=== PATIENT | female | born 1945 | race Caucasian/White ===

== ENCOUNTER → 2018-05-13 | Day surgery (SDC) | payer MEDICARE ==
[2018-05-09 15:05] LABS: BASOPHILS % 0.7 % (0.0-1.0); EOSINOPHILS # (AUTO) 0.2 (0.0-0.4); EOSINOPHILS % 4.3 % (0.0-6.0); HEMATOCRIT 32.6 % (34.2-44.1); HEMOGLOBIN 10.5 g/dL (12.0-16.0); LYMPHOCYTES # (AUTO) 1.2 (1.0-3.2); LYMPHOCYTES % 22.2 % (18.0-39.1); MEAN CORPUSCULAR HGB CONC 32.2 g/dL (31-35); MEAN CORPUSCULAR VOLUME 90.1 fL (81-99); MONOCYTES # (AUTO) 0.4 (0.2-0.8); MONOCYTES % 7.2 % (4.4-11.3); NEUTROPHILS # (AUTO) 3.7 (2.1-6.9); NEUTROPHILS % 65.4 % (38.7-80.0); PLATELET COUNT 160 x10e3/uL (140-360); RED BLOOD COUNT 3.62 x10e6/uL (3.6-5.1); RED CELL DISTRIBUTION WIDTH 14.8 % (11.7-14.4)
[2018-05-09 15:34] LABS: ANION GAP 14.8 mmol/L (8-16); CREATININE, SERUM 1.43 mg/dL (0.57-1.11); POTASSIUM 3.8 mmol/L (3.5-5.1)
--- NOTE | 2018-05-09 16:09 | Diagnostic Imaging Report ---
EXAMINATION: CHEST 2 VIEWS INDICATION: Pre-admit. COMPARISON: None FINDINGS: TUBES and LINES: None. LUNGS: Lungs are well inflated. Lungs are clear. There is no evidence of pneumonia or pulmonary edema. PLEURA: No pleural effusion or pneumothorax. HEART AND MEDIASTINUM: The cardiomediastinal silhouette is unremarkable. BONES AND SOFT TISSUES: No acute osseous abnormality. Postsurgical changes involving the left lower chest wall. UPPER ABDOMEN: No free air under the diaphragm. There are postsurgical changes involving the upper abdomen. IMPRESSION: No acute radiographic abnormality. Signed by: Dr. Sergo Devine MD on 05/09/2018 4:05 PM
[~2018-05-13] MED LIST: ACETAMINOPHEN650 M1; ALLOPURINOL300 MG PO; AMLODIPINE BESY10 MG PO; ASPIRIN81 MG; BACLOFEN10 MG PO; BUPROPION HCL100 MG PO; CEFAZOLIN SOD 1 GM/NS 50ML 50 ML IV ONE; DEXAMETHASONE SOD PHOS INJ 4 MG/ML VIAL ONE; FENTANYL CITRATE/PF 100MCG/2 ML INJ ONE; FOCUS FACTOR; LAMOTRIGINE200 MG PO; LASIX20 MG PO; LIDOCAINE HCL 2% LOCAL INJ 5 ML SDV VIAL INJ ONE; METOPROLOL TART50 MG PO; MIDAZOLAM HCL 2 MG/2 ML VIAL ONE; NORCO 7.5-3251 EACH PO; OMEGA 3 FISH O1 EACH; OMEPRAZOLE40 MG PO; ONDANSETRON HCL INJ 2MG/ML 2ML 2 MG/ML VIAL ONE; POTASSIUM CHLO500 G1 PO; PRAVASTATIN SOD40 MG PO; PROPOFOL IV EMULSION 10 MG/ML 20 ML VIAL ONE; SEVOFLURANE INHAL SOLN 250 ML PEN BTL ONE; SUPER B COMPLE1 EACH; SYNTHROID100 MCG PO; TRAMADOL HCL100 MG; TUMERIC; VENLAFAXINE H37.5 M2 PO; VITAMIN D35000 UNIT
--- OUTSIDE RECORDS SUMMARY | 2018-05-13 05:11 | XMS REPORT ---
Author Author [facility] Address Unknown Phone Unavailable Care Team Providers Care Hooker Operator Name Role Phone MAT CHRISTENSEN Unavailable Unavailable Problems This patient has no known problems. Allergies, Adverse Reactions, Alerts This patient has no known allergies or adverse reactions. Medications This patient has no known medications. Results Test Description Test Time Test Comments Text Results Atomic Results Result Comments CHEST 2 VIEWS 2018-05-09 16:02:00 [place] [address] Patient Name: JACK DICKENS MR #: [id number] : 1945 Age/Sex: 72/F Req #: [id number] Adm Physician: Ordered by: MAT CHRISTENSEN MD Report #: [id number] Location: OR Room/Bed: Procedure: [id number] DX/CHEST 2 VIEWS Exam Date: 05/09/18 Exam Time: 1530 REPORT STATUS: Signed EXAMINATION: CHEST 2 VIEWS INDICATION: Pre-admit. COMPARISON: None FINDINGS: TUBES and LINES: None. LUNGS: Lungs are well inflated. Lungs are clear. There is no evidence of pneumonia or pulmonary edema. PLEURA: No pleural effusion or pneumothorax. HEART AND MEDIASTINUM: The cardiomediastinal silhouette is unremarkable. BONES AND SOFT TISSUES: No acute osseous abnormality. Postsurgical changes i nvolving the left lower chest wall. UPPER ABDOMEN: No free air under the diaphragm. There are postsurgical changes involving the upper abdomen. IMPRESSION: No acute radiographic abnormality. Signed by: Dr. Moon Soria MD on 05/09/2018 4:05 PM Dictated By: MOON SORIA MD [id number] Transcribed By: BRIGHT on 05/09/18 1601 COPY TO: MAT CHRISTENSEN MD
--- NOTE | 2018-05-13 08:00 | Operative Report ---
DATE OF PROCEDURE: May 13, 2018 MACHINIST BRAKE: Magdi Rutherford PA-C The patient was brought to the operating room for induction of anesthesia. Throughout this case, my PA's assistance was necessary for retraction of soft tissue and positioning of the extremity. This allows for efficient and technically successful execution of the operation and is considered medically necessary. PREOPERATIVE DIAGNOSIS: Bilateral carpal tunnel syndrome. POSTOPERATIVE DIAGNOSIS: Bilateral carpal tunnel syndrome. PROCEDURE: Bilateral endoscopic carpal tunnel release. INDICATIONS: The patient is a 72-year-old lady who has clinic signs and symptoms consistent with bilateral carpal tunnel syndrome. She has failed conservative management and would like to proceed with definitive intervention. The risks and benefits of an endoscopic versus open carpal tunnel release have been discussed. She states she understands and wishes to proceed. DESCRIPTION OF PROCEDURE: The patient was brought to the operating room and placed under general anesthetic. Both upper extremities were prepped and draped in a sterile manner. A preoperative time out was performed. Initial attention was directed towards the left upper extremity. The extremity was exsanguinated and a proximal tourniquet was inflated to 250 mmHg. A transverse incision was made over the flexion crease of the left wrist. The palmaris longus was retracted to the radial side of the wound. The flexor retinaculum was elevated and incised with a pair of tenotomy scissors. An elevator was placed to tease the tenosynovium off of the undersurface of the transverse carpal ligament. Dilators were placed and the hook of the hamate was palpated. The Micro-Aire endoscope was placed into the carpal tunnel. The undersurface of the ligament was cleanly visualized without evidence of soft tissue interposition. The knife was deployed and the ligament was cut from distal to proximal. The proximal retinaculum was incised under direct visualization using a pair Metzenbaum scissors. The incision was closed with 2 interrupted nylon stitches. A sterile bandage was applied and the tourniquet was deflated. The same procedure was then performed on the right side. The patient was extubated and transported to the recovery room in stable condition. There was no blood loss. All needle and sponge counts were correct. Job#: [id number] ND
[2018-05-13 09:00] VITALS: BP 149/90
== END | disposition home or self-care (01) ==
LOC: OR 05:09
PROVIDERS: ATTEND Specialist
DX: G56.03 Carpal tunnel syndrome, bilateral upper limbs (principal); I12.9 Hypertensive chronic kidney disease with stage 1 through stage 4 chronic kidney disease, or unspecified chronic kidney disease; N18.9 Chronic kidney disease, unspecified; M06.9 Rheumatoid arthritis, unspecified; R53.1 Weakness; M54.2 Cervicalgia; E03.9 Hypothyroidism, unspecified; K21.9 Gastro-esophageal reflux disease without esophagitis; K44.9 Diaphragmatic hernia without obstruction or gangrene; R35.0 Frequency of micturition; D64.9 Anemia, unspecified; E78.5 Hyperlipidemia, unspecified; R01.1 Cardiac murmur, unspecified; R00.1 Bradycardia, unspecified; F32.9 Major depressive disorder, single episode, unspecified; Z01.810 Encounter for preprocedural cardiovascular examination; Z01.812 Encounter for preprocedural laboratory examination; Z01.818 Encounter for other preprocedural examination; Z79.82 Long term (current) use of aspirin; Z68.37 Body mass index [BMI] 37.0-37.9, adult; Z87.891 Personal history of nicotine dependence
CPT/HCPCS: 29848; 36415; 71046; 80048; 85025; 93005; J0690; J1100; J2001; J2250; J2405; J2704

== ENCOUNTER 2018-09-20 13:28 | Inpatient (IN) | payer MEDICARE ==
[~2018-09-20] VITALS: Ht 162.6 cm; Wt 133.9 kg
[~2018-09-20 13:28] MED LIST changes: -ACETAMINOPHEN650 M1; +ACETAMINOPHEN650 M1 PO; -ASPIRIN81 MG; +ASPIRIN81 MG PO; -CEFAZOLIN SOD 1 GM/NS 50ML 50 ML IV ONE; -DEXAMETHASONE SOD PHOS INJ 4 MG/ML VIAL ONE; -FENTANYL CITRATE/PF 100MCG/2 ML INJ ONE; -FOCUS FACTOR; +FOCUS FACTOR PO; -LIDOCAINE HCL 2% LOCAL INJ 5 ML SDV VIAL INJ ONE; -MIDAZOLAM HCL 2 MG/2 ML VIAL ONE; -OMEGA 3 FISH O1 EACH; +OMEGA 3 FISH O1 EACH PO; -ONDANSETRON HCL INJ 2MG/ML 2ML 2 MG/ML VIAL ONE; -PROPOFOL IV EMULSION 10 MG/ML 20 ML VIAL ONE; -SEVOFLURANE INHAL SOLN 250 ML PEN BTL ONE; -SUPER B COMPLE1 EACH; +SUPER B COMPLE1 EACH PO; -TRAMADOL HCL100 MG; +TRAMADOL HCL100 MG PO; -TUMERIC; +TUMERIC PO; -VITAMIN D35000 UNIT; +VITAMIN D35000 UNIT PO
[2018-09-20] MEDS ORDERED: ONDANSETRON HCL INJ 2MG/ML 2ML 2 MG/ML VIAL IV NR (14:16)
[2018-09-20] MEDS ORDERED: SODIUM CHLORIDE 0.9% 1000ML 1,000 ML IV STA (14:16)
[2018-09-20] MEDS ORDERED: MORPHINE SULFATE INJ 4 MG/ML INJ 1ML IV NR (14:30)
[2018-09-20] MEDS ORDERED: ACETAMINOPHEN 325 MG TAB PO NR (14:30)
[2018-09-20 15:11] LABS: BASOPHILS # (AUTO) 0.1 (0.0-0.1); BASOPHILS % 0.3 % (0.0-1.0); EOSINOPHILS # (AUTO) 0.3 (0.0-0.4); HEMATOCRIT 37.1 % (34.2-44.1); HEMOGLOBIN 11.9 g/dL (12.0-16.0); LYMPHOCYTES # (AUTO) 1.3 (1.0-3.2); LYMPHOCYTES % 4.8 % (18.0-39.1); MEAN CORPUSCULAR HEMOGLOBIN 28.5 pg (28-32); MEAN CORPUSCULAR HGB CONC 32.1 g/dL (31-35); MONOCYTES % 7.2 % (4.4-11.3); NEUTROPHILS # (AUTO) 23.9 (2.1-6.9); NEUTROPHILS % 85.7 % (38.7-80.0); PLATELET COUNT 246 x10e3/uL (140-360); RED BLOOD COUNT 4.17 x10e6/uL (3.6-5.1); RED CELL DISTRIBUTION WIDTH 15.5 % (11.7-14.4)
[2018-09-20 15:21] LABS: INR 1.13
[2018-09-20 15:22] LABS: PARTIAL THROMBOPLASTIN TIME 35.4 seconds (23.8-35.5)
[2018-09-20 15:28] LABS: ALBUMIN 2.8 g/dL (3.5-5.0); ALBUMIN/GLOBULIN RATIO 0.8 (0.8-2.0); ANION GAP 12.8 mmol/L (8-16); CALCIUM 9.3 mg/dL (8.4-10.2); CREATININE, SERUM 1.16 mg/dL (0.57-1.11); MAGNESIUM 2.1 MG/DL (1.3-2.1); POTASSIUM 3.8 mmol/L (3.5-5.1)
[2018-09-20 15:36] LABS: CREATINE KINASE MB 1.8 ng/mL (0-5.0)
--- NOTE | 2018-09-20 15:36 | Diagnostic Imaging Report ---
EXAMINATION: CHEST SINGLE (PORTABLE) INDICATION: Flank pain. COMPARISON: Chest radiograph 05/09/2018. FINDINGS: TUBES and LINES: None. LUNGS/PLEURA: There is near complete opacification of the left hemithorax. There is a small amount of residual aeration in the left upper lung. The right lung is clear. HEART AND MEDIASTINUM: Silhouetting of the left heart border. BONES AND SOFT TISSUES: No acute osseous abnormality. Partially seen cervical spine fixation hardware. UPPER ABDOMEN: No free air under the diaphragm. Surgical clips project over the right upper abdomen. IMPRESSION: Near complete opacification of the left hemithorax, which may represent a combination of large pleural effusion and atelectasis. Underlying pneumonia is possible. Suggest chest CT for further evaluation. Signed by: Dr. Sergo Devine MD on 09/20/2018 3:33 PM
[2018-09-20 16:30] LABS: BILIRUBIN,URINE SMALL (NEGATIVE); CLARITY,URINE SL CLOUDY (CLEAR); KETONES,URINE NEGATIVE (NEGATIVE); LEUKOCYTE ESTERASE ,URINE TRACE (NEGATIVE); NITRITE,URINE NEGATIVE (NEGATIVE); PROTEIN,URINE DIPSTICK 1+ (NEGATIVE); URINE UROBILINOGEN 0.2 mg/dL (0.2 - 1)
[2018-09-20 16:31] LABS: COLOR,URINE STRAW (YELLOW)
--- NOTE | 2018-09-20 16:32 | Diagnostic Imaging Report ---
EXAM: CT Abdomen and Pelvis WITHOUT contrast INDICATION: Abdominal and back pain, history of renal stones. COMPARISON: Chest radiograph 09/20/2018. TECHNIQUE: Abdomen and pelvis were scanned utilizing a multidetector helical scanner from the lung base to the pubic symphysis without administration of IV contrast. Absence of intravenous contrast decreases sensitivity for detection of focal lesions and vascular pathology. Coronal and sagittal reformations were obtained. Renal stone protocol was performed. IV CONTRAST: None. ORAL CONTRAST: Water RADIATION DOSE: Total DLP: 753 mGy*cm Dose modulation, iterative reconstruction, and/or weight based adjustment of the mA/kV was utilized to reduce the radiation dose to as low as reasonably achievable. COMPLICATIONS: None FINDINGS: LINES and TUBES: None. LOWER THORAX: There is patchy and linear opacity in the right lower lobe. Partially seen left-sided pleural effusion with left lower lobe consolidation. There is a small amount of fluid within the left lower mediastinal fat. Trace pericardial effusion. HEPATOBILIARY: No evidence of focal hepatic lesions. No biliary ductal dilation. GALLBLADDER: Status post cholecystectomy. SPLEEN: No splenomegaly. PANCREAS: No evidence of focal masses or ductal dilatation. ADRENALS: No adrenal nodules KIDNEYS/URETERS: No hydronephrosis. No evidence of solid mass. No stones. There is a 3.8 cm simple cyst in the left mid pole kidney. Additional left lower pole subcentimeter renal hypodensity is too small to characterize, but likely represents a cyst. GI TRACT: No abnormal distention, wall thickening, or evidence of bowel obstruction. Status post gastric sleeve. Appendix is normal. PELVIC ORGANS/BLADDER: The bladder is partially decompressed. LYMPH NODES: No lymphadenopathy. VESSELS: There is moderate atherosclerotic disease in the aorta and major arterial branches. PERITONEUM / RETROPERITONEUM: No free air or fluid. BONES: Extensive degenerative changes of the lumbar spine. No acute osseous abnormality. SOFT TISSUES: There has been prior right anterior abdominal hernia repair. There is subcutaneous edema in the right lower back tissues. IMPRESSION: No evidence of renal stone. Partially seen left-sided pleural effusion and consolidative opacities in the left greater than right lower lobe, which may represent pneumonia or atelectasis. Recommend chest CT for further evaluation. If renal function is satisfactory, IV contrast would be helpful. Signed by: Dr. Sergo Devine MD on 09/20/2018 4:29 PM
[2018-09-20 16:44] LABS: AMORPHOUS SEDIMENT,URINE MODERATE (FEW); BACTERIA,URINE MANY /HPF; EPITHELIAL CELLS,URINE FEW /LPF; WBC,URINE (MAN) 0-5 /HPF (0-5)
[2018-09-20] MEDS: AZITHROMYCIN 500MG/NS 250 ML 250 ML IV SCH (17:11)
[2018-09-20] MEDS: PIPER-TAZ 3.375 GM 50 ML IV SCH (18:28)
[2018-09-20] MEDS ORDERED: ALBUTEROL SULF 0.083% NEB SOLN 3 ML NEB NEB PRN (18:45)
[2018-09-20] MEDS ORDERED: SODIUM CHLORIDE 0.9% 1000ML 1,000 ML IV ONE (18:45)
[2018-09-20] MEDS ORDERED: MORPHINE SULFATE 2 MG/ML SYR 1ML IV PRN (18:45)
--- NOTE | 2018-09-20 18:47 | Diagnostic Imaging Report ---
CT CHEST WITHOUT CONTRAST HISTORY: ? PNEUMONIA, abnormal x-ray, pain COMPARISON: Chest radiograph September 20, 2017. TECHNIQUE: CT scan of the chest WITHOUT intravenous contrast, using standard protocol. The chest was scanned utilizing a multidetector helical scanner from the apex to the level of the adrenal glands. Coronal and sagittal reformats are provided. IV CONTRAST: None, which limits evaluation of the vascular structures, mediastinum and soft tissues. RADIATION DOSE: Total DLP: 514.75 mGy*cm Dose modulation, iterative reconstruction, and/or weight based adjustment of the mA/kV was utilized to reduce the radiation dose to as low as reasonably achievable. COMPLICATIONS: None FINDINGS: Lines/tubes: None. Lungs and Airways: Right: * Mild lower lobe greater than upper lobe atelectasis versus scarring. Left: * Near complete collapse of the left lung. * Underlying pathology may be obscured. Pleura: Large low-density left effusion with components of loculation. Trace right effusion. Heart and mediastinum: The thyroid gland is normal. Trace pericardial fluid. Fluid within the esophagus. Abdomen: Limited nonenhanced views of the upper abdomen. Metallic clips in the right upper quadrant of the abdomen are compatible with prior cholecystectomy. Lymph nodes: No pathologically enlarged lymph node. Vessels: Mild enlargement of the pulmonary arteries. Scattered atherosclerotic vascular calcifications, including the coronary arteries. Low-density blood flow. Bones: No acute osseous lesion identified. Multilevel flowing nonmarginal syndesmophytes, compatible with DISH (Diffuse idiopathic skeletal hyperostosis). Soft tissues: Otherwise, unremarkable. IMPRESSION: 1. Large left pleural effusion with components of loculation, results in near complete collapse of the left lung. Recommend short term follow up routine PA and lateral chest radiographs, in 6-8 weeks, to evaluate for resolution. 2. Trace right pleural effusion with adjacent atelectasis. 3. Mild enlargement of pulmonary arteries, suggestive of increased pulmonary arterial pressures. 4. Probable gastroesophageal reflux. 5. Anemia. Signed by: Dr. Dirk El D.O., M.M.M. on 09/20/2018 6:43 PM
--- NOTE | 2018-09-20 18:59 | NUR ---
Per Dr. Dela Cruz, patient may have thoracentesis done 09/21/18 in the morning.
[2018-09-20] MEDS: ONDANSETRON HCL INJ 2MG/ML 2ML 2 MG/ML VIAL IV PRN (19:10)
[2018-09-20 21:12] VITALS: BP_SYST 108; BP_SYST 123; BP_DIAS 67; BP_DIAS 75
[2018-09-20 21:27] VITALS: BP 123/67
--- NOTE | 2018-09-20 21:48 | NUR ---
Consent signed for thoracentesis
[2018-09-21] VITALS (8 sets, daily range): BP systolic 124–144; BP diastolic 61–84
[2018-09-21] MEDS: PIPER-TAZ 3.375 GM 50 ML IV SCH ×4 (00:08→17:16)
[2018-09-21 00:35] LABS: CREATINE KINASE MB 2.3 ng/mL (0-5.0)
[2018-09-21 05:35] LABS: BASOPHILS # (AUTO) 0.1 (0.0-0.1); BASOPHILS % 0.2 % (0.0-1.0); EOSINOPHILS # (AUTO) 0.4 (0.0-0.4); EOSINOPHILS % 1.6 % (0.0-6.0); HEMOGLOBIN 10.5 g/dL (12.0-16.0); LYMPHOCYTES # (AUTO) 0.8 (1.0-3.2); LYMPHOCYTES % 3.6 % (18.0-39.1); MEAN CORPUSCULAR HEMOGLOBIN 28.2 pg (28-32); MEAN CORPUSCULAR HGB CONC 30.9 g/dL (31-35); MEAN CORPUSCULAR VOLUME 91.4 fL (81-99); MONOCYTES # (AUTO) 1.3 (0.2-0.8); MONOCYTES % 5.9 % (4.4-11.3); NEUTROPHILS # (AUTO) 19.4 (2.1-6.9); NEUTROPHILS % 87.9 % (38.7-80.0); PLATELET COUNT 191 x10e3/uL (140-360); RED BLOOD COUNT 3.72 x10e6/uL (3.6-5.1); RED CELL DISTRIBUTION WIDTH 15.2 % (11.7-14.4)
--- NOTE | 2018-09-21 06:03 | Diagnostic Imaging Report ---
EXAMINATION: CHEST SINGLE (PORTABLE) INDICATION: Pneumonia. COMPARISON: Chest radiograph 09/20/2018 at 1452 hours. FINDINGS: TUBES and LINES: None. LUNGS/PLEURA: There is now complete opacification of the left hemithorax including the apex which was previously aerated. HEART AND MEDIASTINUM: Obscured. BONES AND SOFT TISSUES: No acute osseous abnormality. Partially seen cervical spine fixation hardware. UPPER ABDOMEN: No free air under the diaphragm. Surgical clips project over the right upper abdomen. IMPRESSION: Interval increased density in the left hemithorax including the apex. Signed by: Dr. Jaylen Jensen M.D. on 09/21/2018 6:00 AM
[2018-09-21 06:14] LABS: ALBUMIN 2.5 g/dL (3.5-5.0); ALBUMIN/GLOBULIN RATIO 0.7 (0.8-2.0); ANION GAP 13.1 mmol/L (8-16); CALCIUM 8.9 mg/dL (8.4-10.2); CREATININE, SERUM 1.1 mg/dL (0.57-1.11); POTASSIUM 4.1 mmol/L (3.5-5.1)
[2018-09-21 06:39] LABS: CREATINE KINASE MB 1.3 ng/mL (0-5.0)
--- NOTE | 2018-09-21 07:05 | NUR ---
RCD PT AT BED PT IS ALERT AND ORIENTED AND RESTING ON BED NO SIGNS PF ANY DISTRESS NOTED IV PATENT BED LOW AND LOCKED CALL LIGHT IN REACH
--- NOTE | 2018-09-21 10:55 | NUR ---
PT WENT TO PROCEDURE IN SAFE CONDITION
--- NOTE | 2018-09-21 12:00 | NUR ---
PT BACK AFTER PROCEDURE PT IS ALERT AND ORIENTED VITALS CHECKED PT RESTING ON BED NO SIGNS OF ANY BLEEDING OR LEAKING ON THE LEFT MIDDLE OF BACK BED LOW AND LOCKED CALL LIGHT IN REACH DRAINED 200 ML OF YELLOW FLUID
--- NOTE | 2018-09-21 12:20 | NUR ---
Patient returned from thoracentesis and no s/s of distress noted. Removed 200ml of yellow thin fluid. Sent to lab. Waiting on orders per MD. Patient sitting on edge of bed and eating lunch
--- NOTE | 2018-09-21 12:35 | Diagnostic Imaging Report ---
EXAM: CT Chest drainage without contrast 09/21/2018 12:00 AM INDICATION: Multiloculated pleural effusion COMPARISON: CT scan performed one day prior TECHNIQUE: Chest was scanned utilizing a multidetector helical scanner from the lung apex through the level of the adrenal glands without administration of IV contrast. Coronal and sagittal reformations were obtained. IV CONTRAST: None RADIATION DOSE: Total DLP: 1418.22 mGy*cm Estimated effective dose: (DLP x 0.014 x size factor) mSv COMPLICATIONS: None CT scanning was performed with the patient in the prone oblique position left side up. Appropriate level for placement of a centesis catheter was determined. Local anesthesia with 1% Xylocaine after full sterile preparation was accomplished. An 8 Mongolian TPK centesis catheter was placed into the pleural space. Only 150 cc was able to be aspirated due to the loculated nature of the pleural effusion. Specimen was sent to the laboratory for culture and sensitivity and additional studies as ordered by the attending physician. Catheter was removed and full lung scanning was performed. Patient tolerated the procedure well. IMPRESSION: 1. CT-guided thoracentesis as described above without evidence of postprocedure pneumothorax. 2. Due to the loculated nature of the effusion surgical consultation is recommended for placement of a large-bore chest tube. Signed by: Dr. Roland Morales DO on 09/21/2018 12:32 PM
--- NOTE | 2018-09-21 13:45 | Diagnostic Imaging Report ---
EXAMINATION: CHEST XRAY POST PROCEDURE COMPARISON: CT chest drainage 1133 hours, chest x-ray 0511 hours INDICATION: ^increased SOB post thoracentesis DISCUSSION: Frontal view of the chest obtained at 1326 hours. HEART AND MEDIASTINUM: The left heart border is obscured due to a loculated left pleural effusion and associated atelectasis. The right heart border is similar in morphology. No mediastinal shift. LINES: None visualized LUNGS: The right lung is well-inflated. The left hemithorax remains almost completely opacified. PLEURA: No evidence of pneumothorax. BONES AND SOFT TISSUES: No focal osseous lesion. The soft tissues are normal. IMPRESSION: No evidence of pneumothorax after CT-guided left thoracentesis. Large loculated left pleural effusion remains. Signed by: Dr. Mark Gordon MD on 09/21/2018 1:42 PM
[2018-09-21 13:49] LABS: CREATINE KINASE MB 1.2 ng/mL (0-5.0)
[2018-09-21] MEDS: AMLODIPINE BESYLATE 10 MG TAB PO SCH (14:30)
[2018-09-21] MEDS: METOPROLOL TARTRATE 50 MG TAB PO SCH (14:30)
[2018-09-21] MEDS ORDERED: PANTOPRAZOLE SOD 40 MG TABEC PO SCH (14:40)
[2018-09-21] MEDS: ONDANSETRON HCL INJ 2MG/ML 2ML 2 MG/ML VIAL IV PRN ×2 (15:28→15:34)
[2018-09-21] MEDS ORDERED: CALCIUM CARBONATE 500 MG CHEWABLE TABS PO PRN (16:00)
--- NOTE | 2018-09-21 16:01 | NUR ---
Nutrition Screen Note RD Recommendation for Physician: -Continue current diet as ordered Plan of Care: RD following, monitoring for tolerance and adequacy Nutrition reason for involvement: Nutrition Risk Trigger - MST Primary Diagnose(s): pleural effusion, PNA PMH: no H&P in chart Ht: 64in Wt: 212.38lb BMI: 36.5kg/m2 IBW: 120lb RD Assessment: (09/21) Chart reviewed. Labs and meds reviewed. 73yo F, who was admitted for pleural effusion. CT-guided left thoracentesis was done today. Visited pt in the room. Pt reported fair appetite with 100% recorded meal intake. Pt also reported 12lbs weight gain since started on Prednisone. Pt denied any nausea or vomiting. LBM 09/20. Pt No complains of chewing or swallowing difficulty. Will continue to monitor and follow. Current Diet: cardiac diet Malnutrition Evaluation (09/21/2018) The patient does not meet criteria for a specified degree of malnutrition at this time. Will re-evaluate at follow-up as appropriate. Diet Education Needs Assessment: Diet education not indicated. Nutrition Care Level: low Signed: Anjelica Acosta, MS, RD, LD
[2018-09-21] MEDS ORDERED: SODIUM CHLORIDE 0.9% 250ML 250 ML ONE (16:41)
[2018-09-21] MEDS: AZITHROMYCIN 500MG/NS 250 ML 250 ML IV SCH (17:16)
[2018-09-21 18:14] LABS: BODY FLUID APPEARANCE SL.CLOUDY; BODY FLUID COLOR YELLOW; BODY FLUID TYPE PLEURAL
[2018-09-21 18:15] LABS: RBC,BODY FLUID 495 cells/uL; WBC,BODY FLUID 550 cells/uL
[2018-09-21 18:20] LABS: LYMPHOCYTES,BODY FLUID 5 %; MONO/MACROPHG,BODY FLUID 1 %; NEUTROPHILS,BODY FLUID 94 %
--- NOTE | 2018-09-21 19:00 | NUR ---
PT RESTING ON BED BED SIDE REPORT GIVEN TO ONCOMING NURSE
[2018-09-21] MEDS: PRAVASTATIN 20 MG TAB PO SCH (21:16)
[2018-09-21] MEDS: MORPHINE SULFATE INJ 4 MG/ML INJ 1ML IV PRN (21:29)
[2018-09-21] MEDS: HEPARIN SOD (PORCINE) 5,000 UNIT/ML VIAL SC SCH (22:15)
[2018-09-22] VITALS (7 sets, daily range): BP systolic 99–147; BP diastolic 57–84
--- NOTE | 2018-09-22 00:10 | History and Physical ---
CHIEF COMPLAINT: Shortness of breath. HISTORY OF PRESENT ILLNESS: This is a 73-year-old female with past medical history of hypertension, chronic back pain, depression, hypothyroidism, hyperlipidemia, who comes into the ED with complaints of shortness of breath ongoing since Sunday of this week. The patient reports to me that over the last 6 weeks, she has been on and off antibiotics by her primary care physician. She was told by her PCP that she had slight pneumonia and apparently was being treated with oral antibiotics. The patient is a very poor historian. She cannot recall to me when the last time she had some sort of imaging, chest x-ray. She denies having a chest x-ray at the PCPs office, but reports having a chest x-ray here at this facility since then as an outpatient, but I do not see any chest x-ray here in the system. The patient was evaluated at bedside on the medical floor. She is currently doing well. She is on nasal cannula. She does get tachypneic. She is status post thoracentesis performed today with 150 mL of fluid removed, but there is evidence of loculations requiring likely a chest tube. She denies any fever at home, chest pain, or any palpitations. Also complains of pleuritic chest pain. REVIEW OF SYSTEMS: Pertinent positives: Shortness of breath, cough, congestion, and pleuritic chest pain. Pertinent negatives: Denies any chest pain, palpitation, nausea, vomiting, diarrhea, dysuria, hematuria, frequency, urgency, lightheadedness, dizziness, abdominal pain, headaches, or any fever. The rest of 14-point review of systems are reviewed with the patient and are negative. ALLERGIES: NO KNOWN DRUG ALLERGIES. HOME MEDICATIONS: 1. Allopurinol 300 mg daily. 2. Norvasc 10 mg daily. 3. Aspirin 81 mg daily. 4. Bupropion 150 mg daily. 5. Levothyroxine 100 mcg daily. 6. Metoprolol tartrate 50 mg daily. 7. Omeprazole 40 mg daily. PAST MEDICAL HISTORY: She was being treated for underlying pneumonia in the last 6 weeks, chronic back pain, hypertension, hypothyroidism, hyperlipidemia, depression, and acid reflux. PAST SURGICAL HISTORY: Reports none. FAMILY HISTORY: Hypertension, diabetes. SOCIAL HISTORY: No drugs. No alcohol. Does not smoke. Good social support. PHYSICAL EXAMINATION: VITAL SIGNS: Temperature 98.4, T-max 100.4, pulses 98, respiratory rate 18, blood pressure 136/78, and pulse ox 96% on room air. GENERAL: No acute distress. Alert and oriented x3. Cooperative on examination. HEENT: Head is normocephalic and atraumatic. Eyes; pupils are equal, round, and reactive to light bilaterally. Extraocular movements are intact bilaterally. NECK: Supple. Good range of motion throughout. No evidence of any erythema or exudate in the posterior pharynx. She has poor dentition. PULMONARY: The patient has decreased breath sounds in the left lung. There is wheezing appreciated. Some crackles appreciated as well. CARDIOVASCULAR: Positive S1, S2. No murmurs, rubs, or gallops appreciated. ABDOMEN: Soft, nondistended, and nontender to palpation. Bowel sounds present. MUSCULOSKELETAL: Strength is 5/5 throughout. . No evidence of any muscle deficits on examination. NEUROLOGIC: Cranial nerves II through XII grossly intact. No evidence of any neurological deficits on exam. SKIN: Intact. Warm to touch. Good cap refill. PSYCHIATRIC: Normal affect and mood. EXTREMITIES: No edema. Good range of motion throughout. LABORATORY FINDINGS: Show white count was 22.2 this morning, but it was 27.8 on admission. Hemoglobin 10.5, hematocrit is 34, platelets of 191. Coagulation; PT 15, INR 1.1, PTT 35. Chemistry; sodium 136, potassium 4.1, chloride 102, bicarb , anion gap of 13, BUN is 19, creatinine is 1.1, glucose is 88. Lactic acid 17and normal, calcium 8.9, total bilirubin is 0.7, AST 21, ALT is 18. Troponins were all negative x3. Albumin 2.5. Urinalysis is concerning for possible UTI. MICROBIOLOGY: Urine cultures pending. Blood cultures are pending. IMAGING STUDIES: Chest x-ray performed on 09/20/2018 shows no near complete opacification of the left hemothorax, which may represent combination as well as underlying pneumonia. CT abdomen and pelvis was performed, shows partially left-sided pleural effusion and consolidative opacities in the left greater than right lower lobe. This may represent pneumonia or atelectasis. Otherwise, no intraabdominal processes. Chest CT again shows large left pleural effusion concerning for underlying loculation. Ultrasound-guided thoracentesis performed, 150 mL was aspirated. The patient shows evidence of some loculations on effusion and unable to aspirate more according to the report. Repeat chest x-ray shows no evidence of pneumothorax. IMPRESSION: 1. Community-acquired pneumonia with loculated effusion of the left lung. 2. Hypertension. 3. Hypothyroidism. 4. Underlying depression. 5. Morbid obesity. PLAN: At this time, continue with IV antibiotics that were ordered. Pulmonary consulted. Status post thoracentesis was performed. I will send appropriate serologies and cultures to the lab. Discussed with Pulmonary already. We will also send will need CT surgery as she may need a decortication. We are going to resume same home medications with no changes at this time. I discussed overall plan of care with the patient and I believe the granddaughter at bedside. They verbalized understanding. We will hold Lovenox for now, then she will need a chest tube to be placed in if pulmonary feels that is needed. MD NICOLE Marrero/SANDI /[id number]
[2018-09-22] MEDS: PIPER-TAZ 3.375 GM 50 ML IV SCH ×5 (00:35→23:29)
--- NOTE | 2018-09-22 00:45 | NUR ---
Dr. Mejia here for rounding. Order received to obtain consent for EGD possible on Sun or Mon depending on patient's condition and vomitus.
--- NOTE | 2018-09-22 01:40 | Consultation ---
DATE OF CONSULTATION: 09/21/2018 Pulmonary Medicine Consult PRIMARY CARE DOCTOR: Dr. Yuli Weiner. REASON FOR REFERRAL: Complicated pleural effusion. HISTORY OF PRESENT ILLNESS: Ms. Jean is a pleasant 73-year-old female with complicated pleural effusion. The patient presented to [facility] on September 20, 2018. The patient has 3 days of back pain. It is gradual onset since 3 days. It is localized to the left side and flank and chest. In the emergency room, she comes and has initial CAT scan of the abdomen demonstrating loculated pleural effusion, left side. The patient had a CT chest showing small right side basilar atelectasis versus consolidation with near 100% opacification of the left hemithorax with the majority due to complicated loculated pleural effusion with what appears to have a thick peel and there is only a small amounts of the left upper lobe open. T-max measured so far is 100.9 degrees Fahrenheit. The patient with attempts at thoracentesis today with 150 mL removed, but majority of the fluid is cystic for removal and this was done by Interventional Radiology. Her initial white count was 27,000 and today it is 22,000. So far, cultures are unremarkable. I am consulted. PAST MEDICAL HISTORY: Hypertension, hypothyroidism, chronic kidney disease, anxiety/depression, chronic back pain, neuropathy, daily allergies, daily GERD. The patient had pneumonia in her early 20s and she was hospitalized for 3 days. In her 30s, she had pneumonia after going to [place] for racing and she had pneumonia simultaneous to her . No pneumonia since. SURGICAL HISTORY: Appendectomy, back surgery, , cholecystectomy, hysterectomy, thyroid surgery. MEDICATIONS: Medication list reviewed per the chart record. Current antibiotics include azithromycin and Zosyn. ALLERGIES: NO KNOWN DRUG ALLERGIES. SOCIAL HISTORY: The patient smoked from age [age], two packs per day. No alcohol. No drugs. She works as a hairdresser, supervisor real estate office, and other small jobs. She is from [place], but lived a good amount of her life in the country in [place]. She moved to [place] for 20 years and she has been in [place] for eight years. No active hobbies now. FAMILY HISTORY: Noncontributory to this. REVIEW OF SYSTEMS: GENERAL: No weight changes. OPHTHALMOLOGIC: No icterus at anytime. ENT: No mouth ulcers. IMMUNOLOGIC: No history of lupus. CARDIAC: No heart attacks. PULMONARY: No hemoptysis. DERMATOLOGIC: Small rash many around her waist and upper leg and little bit on her right forearm. NEUROLOGIC: No seizures. : No blood in urine. GI: No diarrhea. PSYCHIATRIC: No recent depressive symptoms. OBJECTIVE: VITAL SIGNS: Currently improved, now afebrile. Vital signs noted and reviewed per the chart record. GENERAL: In no acute distress, alert, calm, good color right now. HEENT: Normocephalic and atraumatic. NECK: Supple. Throat midline. LUNGS: Bilateral air entry is asymmetric, decreased breath sounds significantly on the left side, right side mostly clear. CARDIOVASCULAR: S1, S2. No murmurs, rubs, or gallops. ABDOMEN: Soft and nontender. EXTREMITIES: No clubbing, no cyanosis, there is 1+ trace edema. INTEGUMENT: No rash or purpura. LABORATORY DATA: 4.1 potassium, 25 bicarbonate, 1.1 creatinine. 22 white count now. 34 hematocrit, 191 platelets. Blood cultures, no growth today x24 hours. Urine culture unremarkable so far. LFTs also remarkable except for albumin 2.5 and total protein is 6.0 with a globulin of 3.6, elevated. IMPRESSION AND PLAN: 1. Acute pneumonia, likely community-acquired. 2. Complicated left-sided pleural effusion, unknown age. Back, she may be older than 3 days. 3. Moderate hypoalbuminemia. 4. Mild anemia. 5. Recent prednisone use for 2 weeks for poison lauren versus shingles/rash on her body. 6. History of daily allergies. 7. Daily gastroesophageal reflux disease. 8. Former smoker, 50 pack years. 9. History of variable environmental exposures. 10. History of hypertension, hypothyroidism, anxiety/depression/chronic back pain, neuropathy. At this time, continue high-dose antibiotics. Continue supportive care. We will await cultures. Sputum culture appears to be just collected. The patient will benefit from thoracic surgery consult, given the appearance of thick p.o. and will be considered for surgical drainage of the chest, which may end up at thoracotomy if it is indeed thick. Follow up respiratory status closely. Thank you very much, Dr. Apple and Dr. Roldan for allowing me a chance to participate in the care of Ms. Jean. Please do not hesitate to contact me if I can help in anyway. MD YUNG Lemus/SANDI /[id number]
[2018-09-22] MEDS: PANTOPRAZOLE 40 MG 10ML VIAL IV SCH ×2 (01:41→13:15)
[2018-09-22] MEDS: LEVOTHYROXINE SODIUM 100 MCG TAB PO SCH ×2 (05:53→23:48)
[2018-09-22] MEDS: HEPARIN SOD (PORCINE) 5,000 UNIT/ML VIAL SC SCH (05:53)
[2018-09-22 06:18] LABS: BASOPHILS # (AUTO) 0.1 (0.0-0.1); BASOPHILS % 0.3 % (0.0-1.0); EOSINOPHILS # (AUTO) 0.3 (0.0-0.4); EOSINOPHILS % 1.5 % (0.0-6.0); HEMATOCRIT 30.7 % (34.2-44.1); HEMOGLOBIN 9.8 g/dL (12.0-16.0); LYMPHOCYTES # (AUTO) 0.9 (1.0-3.2); LYMPHOCYTES % 4.7 % (18.0-39.1); MEAN CORPUSCULAR HEMOGLOBIN 28.7 pg (28-32); MEAN CORPUSCULAR HGB CONC 31.9 g/dL (31-35); MONOCYTES # (AUTO) 1.2 (0.2-0.8); MONOCYTES % 5.8 % (4.4-11.3); NEUTROPHILS # (AUTO) 17.3 (2.1-6.9); NEUTROPHILS % 86.9 % (38.7-80.0); PLATELET COUNT 204 x10e3/uL (140-360); RED BLOOD COUNT 3.41 x10e6/uL (3.6-5.1); RED CELL DISTRIBUTION WIDTH 15.1 % (11.7-14.4)
[2018-09-22 06:38] LABS: ANION GAP 13.7 mmol/L (8-16); CALCIUM 9.2 mg/dL (8.4-10.2); CREATININE, SERUM 1.17 mg/dL (0.57-1.11); POTASSIUM 4.7 mmol/L (3.5-5.1)
--- NOTE | 2018-09-22 07:05 | NUR ---
RCD PT AT BED PT IS ALERT AND RESTING ON BED NO SIGNS PF ANY DISTRESS NOTED IV PATENT FAMILY AT BED SIDE BED LOW AND LOCKED CALL LIGHT IN REACH
[2018-09-22] MEDS ORDERED: PANTOPRAZOLE SOD 40 MG TABEC PO SCH (07:30)
[2018-09-22] MEDS: VANCOMYCIN 1GM/NS 250 ML 250 ML IV SCH ×2 (08:30→20:09)
[2018-09-22] MEDS: VENLAFAXINE HCL 37.5MG XR CAP PO SCH (09:00)
[2018-09-22] MEDS: ALLOPURINOL 300 MG TAB PO SCH (09:00)
[2018-09-22] MEDS ORDERED: METOPROLOL TARTRATE 50 MG TAB PO SCH (09:00)
[2018-09-22] MEDS: LAMOTRIGINE 100 MG TAB PO SCH (09:00)
[2018-09-22] MEDS: AMLODIPINE BESYLATE 10 MG TAB PO SCH (09:00)
[2018-09-22] MEDS: ASPIRIN 81 MG CHEW TAB PO SCH (09:00)
[2018-09-22] MEDS: BUPROPION HCL 150 MG TABCR PO SCH (09:00)
[2018-09-22] MEDS: METOPROLOL TARTRATE 50 MG TAB PO SCH (09:00)
--- NOTE | 2018-09-22 14:01 | NUR ---
Pulmonary Medicine DATE OF ENCOUNTER: 09/22/2018 SUBJECTIVE: NC 3 L/min by nasal cannula. No respiratory distress. Last BM was 2 days ago, none since. Eats ok for now. She states she didnt sleep well last night. REVIEW OF SYSTEMS: no double vision, no headaches OBJECTIVE: VITAL SIGNS: Vital signs noted per the chart record. GENERAL: NAD, sitting up. Sleepy mildly HEENT: Normocephalic and atraumatic. NECK: Supple. Throat midline. LUNGS: Decreased breath sounds on the left side, right side mostly clear. CARDIOVASCULAR: S1, S2. No murmurs, rubs, or gallops. ABDOMEN: Soft and nontender. EXTREMITIES: No clubbing, no cyanosis, 1+ trace edema. INTEGUMENT: No rash or purpura. LABORATORY DATA: 4.7 k, 1.2 cr. 20 wbc. 31 hct. IMPRESSION AND PLAN: 1. Acute pneumonia, likely community-acquired. 2. Complicated left-sided pleural effusion, unknown onset. May be older than 3 days? 3. Moderate hypoalbuminemia. 4. Mild anemia. 5. Recent prednisone use for 2 weeks (for rash on her body) 6. History of daily allergies. 7. Daily gastroesophageal reflux disease. 8. Former smoker, 50 pack years. 9. History of variable environmental exposures. 10. History of hypertension, hypothyroidism, anxiety/depression/chronic back pain, neuropathy. Continue high-dose antibiotics. Await cultures and pleural fluid analysis from yesterday. Sputum culture follow up Thoracic surgery consult today Follow up respiratory status closely. Nurse reports there is a possible EGD tomorrow? Thank you very much, Dr. Apple and Dr. Roldan for allowing me a chance to participate in the care of Ms. Jean. Please do not hesitate to contact me if I can help in anyway.
[2018-09-22] MEDS: ONDANSETRON HCL INJ 2MG/ML 2ML 2 MG/ML VIAL IV PRN (14:03)
[2018-09-22] MEDS: MORPHINE SULFATE INJ 4 MG/ML INJ 1ML IV PRN (14:03)
--- NOTE | 2018-09-22 15:32 | Consultation ---
DATE OF CONSULTATION: 09/22/2018 This is a patient of Dr. Apple. Currently located at [place], [place]. HISTORY OF PRESENT ILLNESS: Ms. Jean is a pleasant 73-year-old female, who was admitted to [facility] with a complaint of shortness of breath. It has been going on for about a week. Per my discussion with the patient, she was treated for pneumonia about three months ago as an outpatient with oral antibiotics. This lady has a history of a GERD diagnosed 2 two years ago after she continued to vomit on a regular basis. She still vomits and complained that there is blood involved when she has emesis. GI also was consulted and the plan is to do EGD. However, it depends, it may be done today or tomorrow. As far as Infectious Disease point of view, this patient came in with shortness of breath and complained of fever maximum reaching to 101 to 102. Also has a 3-day history of back pain localized to the left flank and chest. Chest x-ray showed near-complete opacification of the left hemithorax which may represent a combination of large perfusion and atelectasis with underlying pneumonia, possible further radiology studies including CT of abdomen and pelvis showed no evidence of renal stone, partially seen left-sided pleural effusion with consolidation opacities in the left greater than the right lobe which may represent pneumonia or atelectasis. CT of the chest was done, which showed a large left pleural effusion with components of loculation resulting in near complete collapse of the left lung, also showed trace right pleural effusion and adjacent atelectasis with mild enlargement of the pulmonary arteries suggestive of increased pulmonary artery pressure and also there is a question of a gastroesophageal reflux seen on CT of the chest. The patient was admitted with a white count level of 27.8, which gradually is improving to 19.9, and creatinine seemed to be within normal limit. She had a lactic acid level of 17.7 on admission. Blood culture came back negative. Urine culture was negative. Status post thoracentesis with Gram stain showing no organisms seen with culture pending. Had a followup chest x-ray, showed no evidence of pneumothorax after CT-guided left thoracentesis with large loculated left pleural effusion. Follow up chest x-ray showed interval increased density of the left hemithorax including the apex. PAST MEDICAL HISTORY: Includes GERD, hypertension, chronic back pain, hypothyroidism, hyperlipidemia, depression, obesity, pneumonia, regular basis emesis, anxiety, chronic kidney disease. ALLERGIES: THE PATIENT HAS NO KNOWN ALLERGIES. LABORATORY STUDIES: White blood cell improved to 19.9 from 27.8, hemoglobin is 9.8, platelets 204. Sodium 138, potassium 4.7, creatinine 1.17. Lactic acid 17.7, AST 21, ALT 18, CK-MB of 1.2, albumin level of 2.5 with total protein of 6. Blood culture and urine cultures negative. Pleural fluid negative on the Gram stain with the cultures pending. There are no pathologies pending that I see. Radiology studies as mentioned above. REVIEW OF SYSTEMS: Remains with shortness of breath, frequent emesis, last time was yesterday, none today so far. The emesis is dark and black in nature and she states that she vomits "a lot." States that the fever has improved, but had a temperature max of 101 to 102. Has bowel movements. Denied diarrhea. No sweats. Pain has improved. PHYSICAL EXAMINATION: GENERAL: Alert and oriented, in bed, no acute distress, remains with shortness of breath on O2 nasal cannula. HEENT: Moist. No pallor. NECK: No JVD. CV: S1, S2. CHEST: Equal expansion, decreased breath sounds, no acute distress. ABDOMEN: Obese, soft, nontender. Bowel sounds positive in four quadrants. EXTREMITIES: Moves all. No edema. ASSESSMENT AND PLAN: This is a 73-year-old lady with chronic gastroesophageal reflux disease, which was also picked up on a CAT scan of the chest with frequent emesis and developed pneumonia. Radiology studies suggest loculated area. The patient is currently on Zosyn and Zithromax. Vital signs reviewed, T-max of 100.8 today with pulse of 81, respirations of 17, blood pressure 115/72. GI on the case for hematemesis with a plan for EGD either today or tomorrow. Lactic acid was within normal limit. Leukocytosis improving. Creatinine level seems to be within the range. This case was discussed with Dr. Stovall in details. Please refer to the chart, the progress note section from today 09/22/2018, for further management of this patient as far as Infectious Disease point of view. Again, this case was discussed with Dr. Stovall in detail. Thank you for this consult. Dictated by Leandro Murphy PA-C (Al) MD NAKIA Garcia/SANDI /[id number]
[2018-09-22] MEDS: AZITHROMYCIN 500MG/NS 250 ML 250 ML IV SCH (17:30)
--- NOTE | 2018-09-22 17:49 | Progress Note ---
DATE: 09/22/2018 Medicine Progress Note SUBJECTIVE: The patient is doing well today with no complaints. She is sitting on the edge of the bed. She has no complaints. She is breathing well. She is scheduled to have an EGD tomorrow according to the nursing staff. PHYSICAL EXAMINATION: VITAL SIGNS: Temperature is 96, pulse 65, respiratory rate is 20, blood pressure 109/79, pulse ox 97% on room air. GENERAL: No acute distress. Alert and oriented x3. Cooperative on examination. HEENT: Head is normocephalic and atraumatic. Eyes; pupils are equal, round, and reactive to light bilaterally. Extraocular movements are intact bilaterally. NECK: Supple. Good range of motion throughout. No evidence of any erythema or exudate in the posterior pharynx. She has poor dentition. PULMONARY: Clear to auscultation bilaterally. No wheezing, no rales, no rhonchi, no crackles appreciated. CARDIOVASCULAR: Positive S1, S2. No murmurs, rubs, or gallops appreciated. ABDOMEN: Soft, nondistended, and nontender to palpation. Bowel sounds present. MUSCULOSKELETAL: Strength is 5/5 throughout. No evidence of any muscle deficits on examination. No weakness appreciated. NEUROLOGIC: Cranial nerves II through XII grossly intact. No evidence of any neurological deficits on exam. SKIN: Intact. Warm to touch. Good cap refill. PSYCHIATRIC: Normal affect and mood. EXTREMITIES: No edema. Good range of motion throughout. LABORATORY DATA: Lab findings show white count is 19.9, hemoglobin 9.8, hematocrit 31, platelets of 204. Chemistry; sodium 138, potassium 4.7, chloride 105, bicarb 24, anion gap of 13, BUN is 20, creatinine is 1.1, glucose is 92%. Microbiology, sputum cultures, blood cultures, urine culture, body fluid cultures all pending. IMAGING STUDIES: None today. IMPRESSION: 1. Community-acquired pneumonia with loculated left lung effusion. 2. Hypotension. 3. Coffee-grounds emesis concerning for upper gastrointestinal bleed. 4. Hypothyroidism. 5. Underlying depression. 6. Morbid obesity. PLAN: At this time, I discussed this case with Pulmonary, who recommends continue with IV antibiotics. Monitor pleural fluid cultures. We did consult with CT Surgery. She will likely need some sort of decortication and further evaluation. We will wait for their final recommendations. ID was also consulted as well which we will continue with IV antibiotics. In relation to her coffee-ground emesis GI was consulted. Scheduled for EGD on tomorrow. Otherwise, we will get repeat labs in the morning. Monitor very closely. I did explain the plan of care with the nursing staff and the patient including her at bedside. MD NICOLE Marrero/SANDI /[id number]
--- NOTE | 2018-09-22 18:00 | NUR ---
PT GOING TO EGD ON TOMORROW CONSENT SIGNED NPO AFTER MIDNIGHT
--- NOTE | 2018-09-22 18:42 | NUR ---
PT RESTING ON BED BED SIDE REPORT GIVEN TO ONCOMING NURSE
[2018-09-22] MEDS: PRAVASTATIN 20 MG TAB PO SCH (21:08)
--- NOTE | 2018-09-22 23:14 | Consultation ---
DATE OF CONSULTATION: 09/22/2018 Cardiology Consult Note REASON FOR CONSULT: Preop cardiovascular assessment. CHIEF COMPLAINT: Shortness of breath and cough. HISTORY OF PRESENT ILLNESS: The patient is a 73-year-old female, no previous cardiovascular history other than hypertension, 40+ pack-year smoker, but quit 30 years ago, who presents with ongoing issues with pneumonia. She is planned to undergo possible decortication and thoracoscopy sometime next week. We are consulted for preop cardiovascular evaluation. The patient says that prior to her pneumonia issues, she was able to walk and use stairs and go outside without any issues. No chest pain, shortness of breath, heart failure symptoms, palpitations, or syncope. No previous history of cardiovascular disease or IN. She has never had a stress test or any other cardiovascular workup. She has been told before that she has a murmur. REVIEW OF SYSTEMS: As above otherwise negative. SOCIAL HISTORY: She does not currently smoke, but is a 40 pack-year smoker in the past, quit about 30 years ago. Does not drink or abuse drugs. FAMILY HISTORY: Noncontributory. OUTPATIENT MEDICATIONS: Reviewed. ALLERGIES: NO KNOWN DRUG ALLERGIES. PHYSICAL EXAMINATION: VITAL SIGNS: Temperature afebrile, pulse 70, respiratory rate 24, blood pressure 109/79, saturating 97% on 2 L nasal cannula. GENERAL: Elderly white female, in no acute distress. CARDIOVASCULAR: Regular rate and rhythm, 2/6 holosystolic murmur at right upper sternal border. LUNGS: Coarse breath sounds bilaterally. ABDOMEN: Obese, soft, nontender, nondistended. NEURO AND PSYCH: Alert and oriented to person, place, and time. Normal affect. INPATIENT MEDICATIONS: Reviewed. LABORATORY DATA: Reviewed. TELEMETRY DATA: Reviewed, shows normal sinus rhythm. ASSESSMENT AND PLAN: 1. Preoperative cardiovascular risk assessment. 2. Complicated pneumonia, pending possible decortication. 3. A 40 pack-year history of smoking. 4. Hypertension. PLAN: Plan to get echocardiogram to evaluate her murmur for any significant valvular abnormalities. EKG is nonischemic. If echo does not show any severe valvular abnormalities, the patient is okay to proceed with planned surgery later this week. She will be at low risk for any perioperative cardiovascular events for moderate risk surgery if there are no severe valvular lesions. Thank you for this consult. We will continue to follow. MD JORDEN Hernández/SANDI /[id number]
--- NOTE | 2018-09-22 23:50 | Consultation ---
DATE OF CONSULTATION: 09/22/2018 REASON FOR CONSULTATION: Persistent left loculated pleural effusion; requested by Dr. Tania Roblero. HISTORY: I saw and evaluated this patient on September 22, 2018. She is a 73-year-old lady with a history of multiple medical problems, who came to the Emergency Room with dyspnea and fevers. She also had a slightly productive cough. She had been evaluated as an outpatient over the 6 weeks prior to admission and had been treated with oral antibiotics by her primary care physician. It is not clear when she had her last chest x-ray. In the Emergency Room, a chest x-ray showed nearly complete opacification of the left pleural cavity (PACS imaging not available this evening). She was admitted and started on antibiotic therapy. A thoracentesis was performed, but returned only 150 mL of fluid. The post-thoracentesis x-ray was largely unchanged. Evaluation for surgical drainage is now requested. The patient also complains of pleuritic chest pain. She also had either hemoptysis or GI bleeding yesterday, which is being evaluated. She has had low grade fevers and some chills. There is no history of myocardial infarction, stroke, or pneumonia. She quit smoking many years ago. PAST MEDICAL HISTORY: Positive for hypertension, chronic back pain, depression, hypothyroidism, and hyperlipidemia. PAST SURGICAL HISTORY: Positive for thyroid surgery and knee surgery. MEDICATIONS: At home, allopurinol, Norvasc, aspirin, bupropion, levothyroxine, metoprolol, and omeprazole. ALLERGIES: NONE KNOWN. FAMILY HISTORY: Positive for hypertension and diabetes. SOCIAL HISTORY: Negative for alcohol or IV drugs. She quit smoking many years ago. REVIEW OF SYSTEMS: GENERAL: Positive for fatigue and malaise. NEUROLOGIC: Negative for focal weakness or dysarthria. HEENT: Negative for decreased vision or decreased hearing. CARDIAC: Negative for chest pain and palpitations. PULMONARY: Negative for wheezing. Positive as above. GI: Negative for diarrhea or constipation. : Negative for hematuria or dysuria. ENDOCRINE: Negative for polyuria or polydipsia. VASCULAR: Negative for claudication. HEMATOLOGIC: Negative for clotting or bleeding. INFECTIOUS: Positive for fevers. Positive for sweating. PSYCHIATRIC: Positive for depression. PHYSICAL EXAMINATION: GENERAL: Somewhat overweight lady, sitting up in a chair. is at the bedside. VITAL SIGNS: Blood pressure 130/75, pulse 80 and regular, respirations 16 and unlabored. NECK: Supple and nontender. No JVD. CARDIAC: Shows a regular rate and rhythm. There is a normal S1 and S2. There is no S3, S4, rub, or murmur. LUNGS: Have markedly decreased breath sounds on the left. Full clear breath sounds on the right with occasional scattered wheezing. ABDOMEN: Globoid, benign. Good bowel sounds. No hepatosplenomegaly. BACK: No CVA tenderness. No muscular spasm. EXTREMITIES: No cyanosis, clubbing, or edema. VASCULAR: Carotids 2+/2+ bilaterally. No carotid bruits. Radials and femorals 1+/2+ bilaterally. SKIN: No rashes or nonhealing ulcers. MUSCULOSKELETAL: Full range of motion at all joints, but no joint swelling. NEUROLOGIC: Cranial nerves II through XII intact. Sensation intact to light touch and pinprick bilaterally. Strength 5/5 in all extremities. LYMPHATICS: Negative for cervical, clavicular, or femoral adenopathy. LABORATORY DATA: White count is 19.9, hemoglobin 9.8, hematocrit 30.7, and platelet count 204,000. INR 1.13, PT 15.0. Sodium 138, potassium 4.7, BUN is 13.7, creatinine 1.17. CK-MB index and troponins were normal. Albumin is low at 2.5. IMAGING: PACS images are not available this evening. IMPRESSION: Large loculated left pleural effusion that will likely require surgical drainage. Chest x-ray and imaging studies will be reviewed. I described the surgery to the patient and her . We will discuss with other physicians. Thank you very much for asking me to see this nice lady. Juan F Sutton MD GVL/MODL /[id number]
[2018-09-23] VITALS (8 sets, daily range): BP systolic 112–148; BP diastolic 56–74
[2018-09-23] MEDS: PANTOPRAZOLE 40 MG 10ML VIAL IV SCH ×2 (01:30→13:56)
[2018-09-23] MEDS: PIPER-TAZ 3.375 GM 50 ML IV SCH ×3 (05:44→18:18)
[2018-09-23 05:45] LABS: BASOPHILS # (AUTO) 0.1 (0.0-0.1); BASOPHILS % 0.4 % (0.0-1.0); EOSINOPHILS # (AUTO) 0.4 (0.0-0.4); EOSINOPHILS % 2.5 % (0.0-6.0); HEMATOCRIT 31.1 % (34.2-44.1); LYMPHOCYTES # (AUTO) 0.7 (1.0-3.2); LYMPHOCYTES % 4.5 % (18.0-39.1); MEAN CORPUSCULAR HEMOGLOBIN 28.9 pg (28-32); MEAN CORPUSCULAR HGB CONC 32.2 g/dL (31-35); MEAN CORPUSCULAR VOLUME 89.9 fL (81-99); MONOCYTES # (AUTO) 0.9 (0.2-0.8); MONOCYTES % 5.9 % (4.4-11.3); NEUTROPHILS # (AUTO) 13.8 (2.1-6.9); NEUTROPHILS % 86.1 % (38.7-80.0); PLATELET COUNT 230 x10e3/uL (140-360); RED BLOOD COUNT 3.46 x10e6/uL (3.6-5.1); RED CELL DISTRIBUTION WIDTH 15.1 % (11.7-14.4)
[2018-09-23 06:03] LABS: ANION GAP 15.4 mmol/L (8-16); CALCIUM 9.2 mg/dL (8.4-10.2); CREATININE, SERUM 1.22 mg/dL (0.57-1.11); POTASSIUM 4.4 mmol/L (3.5-5.1)
--- NOTE | 2018-09-23 06:55 | Diagnostic Imaging Report ---
EXAMINATION: CHEST SINGLE (PORTABLE) INDICATION: Pleural effusion. COMPARISON: Chest radiograph 09/22/2018 FINDINGS: TUBES and LINES: None. LUNGS/PLEURA: Redemonstration of complete opacification of the left hemithorax. HEART AND MEDIASTINUM: Obscured. BONES AND SOFT TISSUES: No acute osseous abnormality. Partially seen cervical spine fixation hardware. UPPER ABDOMEN: No free air under the diaphragm. Surgical clips project over the right upper abdomen. IMPRESSION: No significant interval change in large left pleural effusion. Mild bilateral pulmonary venous congestion. Signed by: Dr. Jaylen Jensen M.D. on 09/23/2018 6:52 AM
[2018-09-23] MEDS: VENLAFAXINE HCL 37.5MG XR CAP PO SCH (09:00)
[2018-09-23] MEDS: LAMOTRIGINE 100 MG TAB PO SCH (09:00)
[2018-09-23] MEDS ORDERED: SODIUM CHLORIDE 0.9% 250ML 250 ML ONE (11:02)
[2018-09-23] MEDS: VANCOMYCIN 1GM/NS 250 ML 250 ML IV SCH ×2 (11:21→20:11)
--- NOTE | 2018-09-23 12:14 | Diagnostic Imaging Report ---
Examination: Single AP view of the chest. COMPARISON: September 23, 2018 INDICATION: Line placement DISCUSSION: Lines/tubes: Right PICC line with tip overlying the superior vena cava. Lungs: Stable opacification of the left hemithorax. Heart and mediastinum: Left heart border obscured. Bones and soft tissues: No acute bony abnormalities. IMPRESSION: 1. Right PICC line with tip overlying the SVC. Signed by: Dr. Itz Ness M.D. on 09/23/2018 12:11 PM
--- NOTE | 2018-09-23 12:57 | NUR ---
Pulmonary Medicine DATE OF ENCOUNTER: 09/23/2018 SUBJECTIVE: No respiratory distress. slept better poor iv access, line placed cxr no complications REVIEW OF SYSTEMS: no double vision, no headaches OBJECTIVE: VITAL SIGNS: Vital signs noted per the chart record. GENERAL: NAD, sitting up. Sleepy mildly HEENT: Normocephalic and atraumatic. NECK: Supple. Throat midline. LUNGS: Decreased breath sounds on the left side, right side mostly clear. CARDIOVASCULAR: S1, S2. No murmurs, rubs, or gallops. ABDOMEN: Soft and nontender. EXTREMITIES: No clubbing, no cyanosis, 1+ trace edema. INTEGUMENT: No rash or purpura. LABORATORY DATA: 16 wbc, 31 hct IMPRESSION AND PLAN: 1. Acute pneumonia, likely community-acquired. 2. Complicated left-sided pleural effusion, acute vs subacute 3. Moderate hypoalbuminemia. 4. Mild anemia. 5. Recent prednisone use for 2 weeks (for rash on her body) 6. History of daily allergies. 7. Daily gastroesophageal reflux disease. 8. Former smoker, 50 pack years. 9. History of variable environmental exposures. 10. History of hypertension, hypothyroidism, anxiety/depression/chronic back pain, neuropathy. 11. gi bleed Continue high-dose antibiotics. Await cultures including pleural. Sputum culture follow up Thoracic surgery follow up, surgery being planned Follow up respiratory status closely. possible EGD ? Thank you very much, Dr. Apple and Dr. Roldan for allowing me a chance to participate in the care of Ms. Jean. Please do not hesitate to contact me if I can help in anyway.
--- NOTE | 2018-09-23 14:41 | Progress Note ---
DATE: 09/23/2018 Cardiology Progress Note SUBJECTIVE: No major events overnight. OBJECTIVE: VITAL SIGNS: Temperature afebrile, pulse 86, respiratory rate 16, blood pressure 120/56, and saturating 95% on nasal cannula. GENERAL: No acute distress. CARDIOVASCULAR: Regular rate and rhythm. A 3/6 systolic murmur at right upper sternal border. LUNGS: Clear to auscultation. Decreased breath sounds at the base on the left. ABDOMEN: Obese, soft, nontender, nondistended. NEURO AND PSYCH: Alert and oriented to person, place, and time. Normal affect. INPATIENT MEDICATIONS: Reviewed. LABORATORY DATA: Reviewed. TELEMETRY DATA: Reviewed, normal sinus rhythm. ASSESSMENT: 1. Preoperative cardiovascular risk assessment. 2. Complicated pneumonia, pending possible decortication. 3. A [id number] history of smoking. 4. Hypertension. PLAN: Reviewed echocardiogram, technically difficult exam, but in limited views looks like LV function is preserved, no severe valvular abnormalities, has aortic sclerosis without any significant stenosis and some mitral annular calcification with mitral regurgitation. Okay to proceed with thoracic surgery as indicated. The patient will be low risk for perioperative cardiovascular events for moderate risk surgery. Thank you for this consult. We will continue to follow. MD JORDEN Hernández/SANDI /[id number]
--- NOTE | 2018-09-23 16:32 | Progress Note ---
DATE: 09/23/2018 Medicine Progress Note SUBJECTIVE: The patient is doing well today with no complaints. She is scheduled to have a decortication on of this week by CT surgery. PHYSICAL EXAMINATION: VITAL SIGNS: Temperature is 98.5, pulse 86, respiratory rate 16, blood pressure 148/68, pulse ox 95% on nasal cannula. GENERAL: No acute distress. Alert and oriented x3. Cooperative on examination. HEENT: Head is normocephalic and atraumatic. Eyes; pupils are equal, round, and reactive to light bilaterally. Extraocular movements are intact bilaterally. NECK: Supple. Good range of motion throughout. No evidence of any erythema or exudate in the posterior pharynx. She has poor dentition. PULMONARY: Clear to auscultation bilaterally. No wheezing, no rales, no rhonchi, no crackles appreciated. Decreased breath sounds in the left side of the lung with fairly minimal air entry. CARDIOVASCULAR: Positive S1, S2. No murmurs, rubs, or gallops appreciated. ABDOMEN: Soft, nondistended, and nontender to palpation. Bowel sounds present. MUSCULOSKELETAL: Strength is 5/5 throughout. No evidence of any muscle deficits on examination. No weakness appreciated. NEUROLOGIC: Cranial nerves II through XII grossly intact. No evidence of any neurological deficits on exam. SKIN: Intact. Warm to touch. Good cap refill. PSYCHIATRIC: Normal affect and mood. EXTREMITIES: No edema. Good range of motion throughout. LABORATORY DATA: Lab findings show white count 16, hemoglobin 10, hematocrit 31, and platelets of 230. Coagulation; PT 15, INR 1.1, PTT 35. Chemistry; sodium 138, potassium 4.4, chloride 105, bicarb 22, anion gap 15, BUN is 22. Creatinine is 1.22, calcium 9.2. MICROBIOLOGY: Blood cultures were negative. Urine cultures were negative. Gram stain of pleural fluids still shows no growth. IMPRESSION: 1. Community-acquired pneumonia with loculated left lung with effusion. 2. Hypotension. 3. Coffee-grounds emesis concerning for upper gastrointestinal bleed. 4. Hypothyroidism. 5. Depression. 6. Morbid obesity. PLAN: At this time, I discussed the case with Pulmonary as well as CT surgery. She is scheduled to have some sort of decortication and likely chest tube on Sunday or of this week. We will continue with IV antibiotics per ID. She did have some evidence of coffee- grounds emesis and GI was consulted. She is scheduled for EGD soon. Get a.m. labs. Discussed overall plan of care with the patient and at bedside. MD NICOLE Marrero/SANDI /[id number]
[2018-09-23] MEDS: ASPIRIN 81 MG CHEW TAB PO SCH (16:47)
[2018-09-23] MEDS: AMLODIPINE BESYLATE 10 MG TAB PO SCH (16:48)
[2018-09-23] MEDS: METOPROLOL TARTRATE 50 MG TAB PO SCH (16:48)
[2018-09-23] MEDS: BUPROPION HCL 150 MG TABCR PO SCH (16:48)
[2018-09-23] MEDS: ALLOPURINOL 300 MG TAB PO SCH (16:48)
[2018-09-23] MEDS: AZITHROMYCIN 500MG/NS 250 ML 250 ML IV SCH (16:59)
[2018-09-23] MEDS ORDERED: GABAPENTIN100 MG PO (19:58)
[2018-09-23] MEDS ORDERED: POTASSIUM CHLO10 MEQ PO (19:58)
[2018-09-23] MEDS: PRAVASTATIN 20 MG TAB PO SCH (20:11)
[2018-09-23] MEDS: ONDANSETRON HCL INJ 2MG/ML 2ML 2 MG/ML VIAL IV PRN (20:11)
[2018-09-23] MEDS: MORPHINE SULFATE INJ 4 MG/ML INJ 1ML IV PRN (20:12)
--- NOTE | 2018-09-23 22:02 | Progress Note ---
DATE: 09/23/2018 SUBJECTIVE: Ms. Jean is feeling better, still has shortness of breath, still some abdominal pain, feeling better. Her cough is also better, but still there. Her CAT scan showed left-sided pleural effusion with consolidation. The patient underwent thoracentesis, CT guided. LABORATORY DATA: White count came down to 16.04, hemoglobin 10. Sodium 138, potassium 4.4. MEDICATIONS: The patient is currently on azithromycin, Zosyn, and vancomycin. IMPRESSION: 1. Pneumonia. Continue IV antibiotic as ordered. 2. Acute kidney injury. Follow vancomycin trough. 3. Anemia of chronic disease, pleural effusion. We will follow closely. We may need to recheck , but we will follow again in a few days. MD RAFY Garcia/SANDI /[id number]
[2018-09-23] MEDS ORDERED: BENZONATATE 100 MG CAP PO PRN (23:30)
[2018-09-24] VITALS (14 sets, daily range): BP systolic 102–137; BP diastolic 56–82
[2018-09-24] MEDS: PIPER-TAZ 3.375 GM 50 ML IV SCH ×4 (00:43→18:05)
[2018-09-24] MEDS: PANTOPRAZOLE 40 MG 10ML VIAL IV SCH ×2 (00:43→13:15)
[2018-09-24] MEDS ORDERED: D5.45%NS/KCL 20MEQ 1,000 ML IV SCH (02:01)
--- NOTE | 2018-09-24 04:00 | NUR ---
patient sleeping in the recliner at this time, Nasal Canula 3L, no complaints of pain at this time.
[2018-09-24 04:56] LABS: BASOPHILS # (AUTO) 0.1 (0.0-0.1); BASOPHILS % 0.3 % (0.0-1.0); EOSINOPHILS # (AUTO) 0.5 (0.0-0.4); EOSINOPHILS % 3.2 % (0.0-6.0); HEMATOCRIT 28.6 % (34.2-44.1); HEMOGLOBIN 9.1 g/dL (12.0-16.0); LYMPHOCYTES # (AUTO) 0.7 (1.0-3.2); LYMPHOCYTES % 4.4 % (18.0-39.1); MEAN CORPUSCULAR HEMOGLOBIN 28.3 pg (28-32); MEAN CORPUSCULAR HGB CONC 31.8 g/dL (31-35); MEAN CORPUSCULAR VOLUME 89.1 fL (81-99); MONOCYTES % 6.3 % (4.4-11.3); NEUTROPHILS # (AUTO) 13.2 (2.1-6.9); NEUTROPHILS % 84.9 % (38.7-80.0); PLATELET COUNT 221 x10e3/uL (140-360); RED BLOOD COUNT 3.21 x10e6/uL (3.6-5.1)
[2018-09-24 05:13] LABS: CALCIUM 8.7 mg/dL (8.4-10.2); CREATININE, SERUM 1.02 mg/dL (0.57-1.11)
[2018-09-24] MEDS: LEVOTHYROXINE SODIUM 100 MCG TAB PO SCH (06:12)
[2018-09-24] MEDS: ALLOPURINOL 300 MG TAB PO SCH (09:00)
[2018-09-24] MEDS: VENLAFAXINE HCL 37.5MG XR CAP PO SCH (09:00)
[2018-09-24] MEDS: AMLODIPINE BESYLATE 10 MG TAB PO SCH (09:00)
[2018-09-24] MEDS: BUPROPION HCL 150 MG TABCR PO SCH (09:00)
[2018-09-24] MEDS: LAMOTRIGINE 100 MG TAB PO SCH (09:00)
[2018-09-24] MEDS: METOPROLOL TARTRATE 50 MG TAB PO SCH (09:00)
[2018-09-24] MEDS: ASPIRIN 81 MG CHEW TAB PO SCH (09:00)
[2018-09-24 09:06] LABS: INR 1.15; PROTHROMBIN TIME 15.3 seconds (11.9-14.5)
[2018-09-24 09:07] LABS: PARTIAL THROMBOPLASTIN TIME 37.2 seconds (23.8-35.5)
--- NOTE | 2018-09-24 09:15 | NUR ---
Vanc trough is 20.1. Al here to see the patient. Orders to hold this mornings dose and to restart daily doses tonight, 09/24/18 at 2030. Orders implemented and received.
[2018-09-24] MEDS ORDERED: HEPARIN SOD/SOD CHLORIDE 1,000 ML ONE (11:17)
[2018-09-24] MEDS ORDERED: BACITRACIN 50,000 UNIT VIAL ONE (12:45)
[2018-09-24] MEDS ORDERED: BUPIVACAINE HCL 0.5% INJ 30 ML VIAL INJ ONE (12:45)
--- NOTE | 2018-09-24 12:52 | NUR ---
Pulmonary Medicine DATE OF ENCOUNTER: 09/24/2018 SUBJECTIVE: Eating less 4 L/min oxygen by nasal cannula no BM x 4 days stable mentation REVIEW OF SYSTEMS: no double vision, no headaches OBJECTIVE: VITAL SIGNS: Vital signs noted per the chart record. GENERAL: NAD, sitting up. HEENT: Normocephalic and atraumatic. NECK: Supple. Throat midline. LUNGS: Decreased breath sounds on the left side, right side mostly clear. CARDIOVASCULAR: S1, S2. No murmurs, rubs, or gallops. ABDOMEN: Soft and nontender. EXTREMITIES: No clubbing, no cyanosis, 1+ trace edema. INTEGUMENT: No rash or purpura. LABORATORY DATA: 16 wbc IMPRESSION AND PLAN: 1. Acute pneumonia, community-acquired. 2. Parapneumonic/complicated left-sided pleural effusion, acute vs subacute 3. Moderate hypoalbuminemia. 4. Mild anemia. 5. Recent prednisone use for 2 weeks (for rash on her body) 6. History of daily allergies. 7. Daily gastroesophageal reflux disease. 8. Former smoker, 50 pack years. 9. History of variable environmental exposures. 10. History of hypertension, hypothyroidism, anxiety/depression/chronic back pain, neuropathy. 11. gi bleed Continue high-dose antibiotics. Await cultures including pleural. Sputum culture follow up Thoracic surgery follow up, surgery being planned tentatively for today Follow up respiratory status closely. Needs BMs Thank you very much, Dr. Apple and Dr. Roldan for allowing me a chance to participate in the care of Ms. Jean. Please do not hesitate to contact me if I can help in anyway.
[2018-09-24] MEDS ORDERED: MAGNESIUM HYDROXIDE 30 ML UDC PO PRN (13:00)
[2018-09-24] MEDS ORDERED: ONDANSETRON HCL 4 MG ORAL DISINTEGRATING TAB PO PRN (14:30)
[2018-09-24] MEDS ORDERED: SUGAMMADEX SODIUM 200 MG/2 ML VIAL IV ONE (15:49)
[2018-09-24] MEDS ORDERED: MORPHINE SULFATE INJ 4 MG/ML INJ 1ML ONE (16:46)
[2018-09-24 16:52] LABS: BASOPHILS # (AUTO) 0.1 (0.0-0.1); BASOPHILS % 0.3 % (0.0-1.0); EOSINOPHILS # (AUTO) 0.2 (0.0-0.4); EOSINOPHILS % 1.7 % (0.0-6.0); HEMATOCRIT 26.7 % (34.2-44.1); HEMOGLOBIN 8.6 g/dL (12.0-16.0); LYMPHOCYTES # (AUTO) 0.7 (1.0-3.2); LYMPHOCYTES % 4.7 % (18.0-39.1); MEAN CORPUSCULAR HEMOGLOBIN 28.9 pg (28-32); MEAN CORPUSCULAR HGB CONC 32.2 g/dL (31-35); MEAN CORPUSCULAR VOLUME 89.6 fL (81-99); MONOCYTES # (AUTO) 0.7 (0.2-0.8); MONOCYTES % 5.1 % (4.4-11.3); NEUTROPHILS # (AUTO) 12.5 (2.1-6.9); NEUTROPHILS % 86.7 % (38.7-80.0); PLATELET COUNT 210 x10e3/uL (140-360); RED BLOOD COUNT 2.98 x10e6/uL (3.6-5.1); RED CELL DISTRIBUTION WIDTH 14.9 % (11.7-14.4)
[2018-09-24] MEDS: D5.45%NS/KCL 20MEQ 1,000 ML IV SCH ×2 (17:00→22:26)
[2018-09-24] MEDS: DOCUSATE SODIUM 100 MG CAP PO SCH (17:00)
[2018-09-24] MEDS ORDERED: MORPHINE SULFATE INJ 4 MG/ML INJ 1ML IV PRN (17:00)
[2018-09-24 17:06] LABS: ANION GAP 14.9 mmol/L (8-16); CALCIUM 8.2 mg/dL (8.4-10.2); CREATININE, SERUM 0.93 mg/dL (0.57-1.11); POTASSIUM 3.9 mmol/L (3.5-5.1)
--- NOTE | 2018-09-24 17:14 | Diagnostic Imaging Report ---
EXAMINATION: CHEST SINGLE (PORTABLE) COMPARISON: Chest x-ray 09/23/2018, CT chest 09/21/2018 INDICATION: Status post thoracotomy, chest tube placement ^S/P THORACOTOMY, PACU BAY 3 DISCUSSION: Frontal view of the chest obtained at 1653 hours. HEART AND MEDIASTINUM: The heart is enlarged LINES: Right PICC line terminates in the SVC. There are 2 left-sided chest tubes that terminate at the apex LUNGS: Patchy airspace opacities in the right lung are suggestive atelectasis. There has been clearing of the upper portion of the left lung. Significant retrocardiac airspace disease remains. PLEURA: No evidence of pneumothorax. Continued left pleural effusion. BONES AND SOFT TISSUES: There is subcutaneous emphysema in the lower left neck and lateral left chest. Surgical clips in the right upper quadrant are stable. IMPRESSION: Interval placement of 2 left-sided chest tubes. No evidence of pneumothorax. There has been some clearing of the upper left chest. Significant retrocardiac airspace disease and likely pleural effusion remain. Patchy airspace opacities in the right upper lobe suggestive of atelectasis. Signed by: Dr. Mark Gordon MD on 09/24/2018 5:10 PM
--- NOTE | 2018-09-24 17:30 | NUR ---
RECEIVED PATIENT FROM PACU, PATIENT IS DROWSY, BUT AROUSABLE. RIGHT WRIST ART LINE SET UP, BP ~110/60. R PICC INFUSING IV FLUIDS, [address] ON LEFT SIDE WITH RED DRAINAGE, 1ST MORE THAN 2ND. NASAL CANNULA 4L, SATING 95%. TURNED TO RIGHT SIDE PER PATIENT REQUEST.
[2018-09-24] MEDS: AZITHROMYCIN 500MG/NS 250 ML 250 ML IV SCH (18:04)
--- NOTE | 2018-09-24 18:48 | Operative Report ---
DATE OF PROCEDURE: 09/24/2018 SURGEON: Juan F Sutton MD PREOPERATIVE DIAGNOSES: Loculated pleural effusion, dyspnea, hypertension, and hypothyroidism. POSTOPERATIVE DIAGNOSES: Loculated pleural effusion, dyspnea, hypertension, and hypothyroidism. OPERATIVE PROCEDURES: 1. Left lateral thoracotomy. 2. Drainage loculated pleural effusion. 3. Full decortication left lung. 4. Multilevel intercostal nerve block. OFFICE CLERK: Nursing staff. ANESTHESIA: General endotracheal with a double lumen endotracheal tube. INDICATIONS: This is a 73-year-old lady with dyspnea and hypertension, who presented with a large recurrent left pleural effusion. Thoracentesis did not resolve the problem and drained only 150 mL of fluid. Surgical drainage with possible decortication has been recommended. Prior to surgery, I described the operation to the patient and her . I told them that the risks of surgery will include , bleeding, infection, heart attack, stroke, pneumonia, prolonged ICU stay, tracheostomy, prolonged mechanical ventilation, prolonged chest tube drainage, renal failure, amputation, etc. The patient and her each stated that they understood, no further questions, and wanted to proceed. FINDINGS: Large loculated left pleural effusion. Yellowish in color and approximately 600 mL drained. The anaerobic, aerobic, fungal, and viral cultures were sent. Specimen was also sent for cytology. DESCRIPTION OF PROCEDURE: The patient was taken to the operating room on September 24, 2018 and placed supine up on the operating room table. General endotracheal anesthesia was slowly induced. A double lumen endotracheal tube was placed. The patient was placed with her left side up. The left lung was deflated. The left chest was sterilely prepped and draped in the usual fashion using an alcohol prewash and Betadine scrub and solution. Time-out was performed appropriately. A lateral thoracotomy was performed. The chest was entered through via 5th intercostal space. A section of the 6th rib was resected and sent to pathology for analysis. The chest was entered. There was a thick cortical peel over the lung involving the chest wall as well. There was also a large 600 mL pleural effusion that was multiloculated. The loculations were broken down and all fluid was removed as well as fibrinous material. This was sent for cultures. Fluid was also sent for multiple cultures including anaerobic, aerobic, fungal, and AFB. Then, a full decortication of the left lung was performed. There was a thick peel over the upper and lower lobes. This was removed uneventfully. The pleural cavity was copiously irrigated. The lung inflated nicely. The open lung space was re-established. Two chest tubes were inserted through separate stab wound incisions. A multilevel intercostal nerve block was performed using 0.5% Marcaine for 4 ribs below and 4 ribs above the incision as well as the incision itself. The lung inflated nicely. There was good hemostasis. The chest was reapproximated using #1 pericostal sutures. Muscular and subcutaneous tissue layers as well as skin were closed using absorbable suture. Sterile dressings were applied. Sponge, instrument, and needle counts were correct prior to and after conclusion. Independent search of the operative field by both operating surgeons and the nurse revealed no retained instruments or sponges. The patient tolerated the procedure well, was taken to the recovery area hemodynamically stable. MD JAVIER Garcia/SANDI /[id number]
[2018-09-24] MEDS ORDERED: LIDOCAINE HCL 2% LOCAL INJ 5 ML SDV VIAL INJ ONE (19:01)
[2018-09-24] MEDS ORDERED: KETAMINE HCL INJ 50 MG/ML 10 ML VIAL ONE (19:01)
[2018-09-24] MEDS ORDERED: FENTANYL CITRATE/PF 100MCG/2 ML INJ ONE (19:01)
[2018-09-24] MEDS ORDERED: EPHEDRINE SULFATE INJ 50 MG/10 ML SYR ONE (19:01)
[2018-09-24] MEDS ORDERED: PROPOFOL IV EMULSION 10 MG/ML 20 ML VIAL ONE (19:01)
[2018-09-24] MEDS ORDERED: ROCURONIUM BROMIDE 10 MG/ML 5ML VIAL ONE (19:01)
[2018-09-24] MEDS ORDERED: ONDANSETRON HCL INJ 2MG/ML 2ML 2 MG/ML VIAL ONE (19:01)
[2018-09-24] MEDS ORDERED: MIDAZOLAM HCL 2 MG/2 ML VIAL ONE (19:01)
[2018-09-24] MEDS ORDERED: DESFLURANE 240 ML BTL INH ONE (19:01)
--- NOTE | 2018-09-24 19:15 | NUR ---
Chest tubes X2 to left chest wall. -20 [facility] closed system working appropriately, no leaks. No crepitations. No complications noted. Minimal serosanguineous noted. An art line to the right wrist is zeroed, leveled, and function properly. Dr Sutton office paged with pain complaints.
--- NOTE | 2018-09-24 19:48 | Progress Note ---
DATE: 09/24/2018 Medicine Progress Note SUBJECTIVE: The patient was seen postoperatively. She is currently in the ICU. She is currently doing well with no issues. She has 2 chest tubes on the left chest wall. OBJECTIVE: VITAL SIGNS: Temperature is 98.7, pulse 86, respiratory rate is 18, blood pressure 130/59, and pulse ox 95% on nasal cannula. GENERAL: Not in acute distress. Alert and oriented x3. Cooperative on examination. HEENT: Head is normocephalic and atraumatic. Eyes; pupils are equal, round, and reactive to light bilaterally. Extraocular movements are intact bilaterally. Throat, no evidence of any erythema or exudates in the posterior pharynx. She has poor dentition. NECK: Supple. Good range of motion. PULMONARY: Clear to auscultation bilaterally. No wheezing, no rales, no rhonchi, no crackles appreciated. CARDIOVASCULAR: Positive S1 and S2. No murmurs, rubs, or gallops appreciated. ABDOMEN: Soft, nondistended, and nontender to palpation. Bowel sounds present. MUSCULOSKELETAL: Strength is 5/5 throughout. No evidence of any muscle deficits on examination. No weakness appreciated. NEUROLOGICAL: Cranial nerves II through XII are grossly intact. No evidence of any neurological deficits on exam. SKIN: Intact. Warm to touch. Good cap refill. PSYCHIATRIC: Normal affect and mood. EXTREMITIES: No edema. Good range of motion throughout. LABORATORY FINDINGS: Show white count 14, hemoglobin 8.6, hematocrit is 26.7, and platelets of 210. Coagulation; PT 15.3, INR 1.1, and PTT 37. Chemistry; sodium 137, potassium 3.9, chloride 107, bicarb 19, anion gap of 14, BUN is 19, creatinine is 0.93, glucose 92, and calcium is 8.2. Pleural fluid cultures were all sent and pending. IMPRESSION: 1. Community-acquired pneumonia with a loculated left lung with effusion, status post thoracotomy with 2 chest tubes placed, performed on 09/24/2018. 2. Hypotension, resolved. 3. Coffee-ground emesis with concerns of upper gastrointestinal bleed, will be deferred later in the hospital stay due to recent surgery. 4. Hypothyroidism. 5. Depression. 6. Morbid obesity. PLAN: At this time, the patient was seen postoperatively and has 2 chest tubes placed now. She has significant amount of fluids removed. I am awaiting on the operative to read exactly what was done. Continue with IV antibiotics. Monitor pleural fluid cultures. ID is following closely. GI is also going to monitor as well. Her hemoglobin is stable for now. We will get a.m. labs. I saw the family at bedside. Discussed plan of care with family and the nurse. MD NICOLE Marrero/SANDI /[id number]
--- NOTE | 2018-09-24 20:00 | NUR ---
Spoke with Dr Sutton. Reported pain complaints per pt. She stated the pain medication did work for aprox 15 minutes, then she was uncomfortable. Also reported that the lung toribio were crackles and not clear as previously reported. No other items of note. New pain medication orders were received.
[2018-09-24] MEDS: VANCOMYCIN 1GM/NS 250 ML 250 ML IV SCH (20:34)
[2018-09-24] MEDS: PRAVASTATIN 20 MG TAB PO SCH (21:56)
--- NOTE | 2018-09-24 22:00 | NUR ---
Assumed care. Taking ice chips & sips of water. Isak well. CT x 2 to 20cm suction with sanguinous drng. No air leak detected.
--- NOTE | 2018-09-24 23:15 | NUR ---
Attempted to use bedpan without success. Purewick placed.
[2018-09-25] VITALS (22 sets, daily range): BP systolic 95–129; BP diastolic 61–97
[2018-09-25] MEDS: MORPHINE SULFATE INJ 4 MG/ML INJ 1ML IV PRN ×3 (00:15→23:35)
[2018-09-25] MEDS: PIPER-TAZ 3.375 GM 50 ML IV SCH ×5 (00:15→23:35)
[2018-09-25] MEDS: PANTOPRAZOLE 40 MG 10ML VIAL IV SCH ×2 (01:22→12:50)
--- NOTE | 2018-09-25 03:36 | NUR ---
Still no urine output. Bladder scan shows 221 ml urine in bladder. Call to Dr. Sutton. Advised of no urine output. No new orders. Hold off on godinez for now. Re-evaluate in AM.
[2018-09-25 05:01] LABS: BASOPHILS # (AUTO) 0.1 (0.0-0.1); BASOPHILS % 0.4 % (0.0-1.0); EOSINOPHILS # (AUTO) 0.1 (0.0-0.4); EOSINOPHILS % 0.6 % (0.0-6.0); HEMATOCRIT 27.4 % (34.2-44.1); HEMOGLOBIN 8.4 g/dL (12.0-16.0); LYMPHOCYTES # (AUTO) 0.6 (1.0-3.2); LYMPHOCYTES % 3.4 % (18.0-39.1); MEAN CORPUSCULAR HEMOGLOBIN 28.3 pg (28-32); MEAN CORPUSCULAR HGB CONC 30.7 g/dL (31-35); MEAN CORPUSCULAR VOLUME 92.3 fL (81-99); MONOCYTES # (AUTO) 0.8 (0.2-0.8); MONOCYTES % 4.3 % (4.4-11.3); NEUTROPHILS # (AUTO) 16.3 (2.1-6.9); PLATELET COUNT 231 x10e3/uL (140-360); RED BLOOD COUNT 2.97 x10e6/uL (3.6-5.1)
[2018-09-25] MEDS: LEVOTHYROXINE SODIUM 100 MCG TAB PO SCH (05:56)
--- NOTE | 2018-09-25 06:15 | NUR ---
Bladder scan now shows [address] Sutton. Advised of no urine output. Orders given for godinez.
--- NOTE | 2018-09-25 06:30 | NUR ---
18FR godinez inserted without difficulty. Clear zelda urine returned. 425 ml residual.
[2018-09-25 06:38] LABS: ALBUMIN 1.7 g/dL (3.5-5.0); ALBUMIN/GLOBULIN RATIO 0.5 (0.8-2.0); ANION GAP 12.2 mmol/L (8-16); CALCIUM 8.3 mg/dL (8.4-10.2); MAGNESIUM 1.8 MG/DL (1.3-2.1); PHOSPHORUS 3.4 MG/DL (2.3-4.7); POTASSIUM 4.2 mmol/L (3.5-5.1)
--- NOTE | 2018-09-25 07:03 | Diagnostic Imaging Report ---
EXAM: CHEST SINGLE (PORTABLE), AP Portable DATE: 09/25/2018 Time stamp on exam: 5:39 AM INDICATION: Pleural effusion COMPARISON: 09/24/2018 FINDINGS: LINES/TUBES: There are 2 chest tubes present in the left hemithorax. Right PICC terminates with the tip overlying the SVC. LUNGS: Increased opacity in the right lung base. PLEURA: No pneumothorax. HEART AND MEDIASTINUM: Heart is enlarged. BONES AND SOFT TISSUES: No acute findings. IMPRESSION: 1. Little change in the appearance of the opacification/effusion involving the left hemithorax with 2 chest tubes present. 2. Increased opacity in the right lung base likely secondary to atelectasis versus pneumonia. Signed by: Dr. Roland Morales DO on 09/25/2018 6:59 AM
[2018-09-25] MEDS: DOCUSATE SODIUM 100 MG CAP PO SCH ×2 (08:02→16:32)
[2018-09-25] MEDS: ASPIRIN 81 MG CHEW TAB PO SCH (08:02)
[2018-09-25] MEDS: VENLAFAXINE HCL 37.5MG XR CAP PO SCH (08:03)
[2018-09-25] MEDS: METOPROLOL TARTRATE 50 MG TAB PO SCH (08:03)
[2018-09-25] MEDS: LAMOTRIGINE 100 MG TAB PO SCH (08:03)
[2018-09-25] MEDS: AMLODIPINE BESYLATE 10 MG TAB PO SCH (08:04)
[2018-09-25] MEDS: BUPROPION HCL 150 MG TABCR PO SCH (08:04)
[2018-09-25] MEDS: ALLOPURINOL 300 MG TAB PO SCH (08:04)
--- NOTE | 2018-09-25 10:21 | Diagnostic Imaging Report ---
EXAM: CHEST SINGLE (PORTABLE), AP Portable DATE: 09/25/2018 Time stamp on exam: 9:26 AM INDICATION: Chest tubes COMPARISON: 09/25/2018 portable chest performed at 5:39 AM FINDINGS: LINES/TUBES: No change in the two left-sided thoracostomy tubes. Right PICC stable in location. LUNGS: Increased pulmonary vascularity in the aerated right lung compared to the previous study. PLEURA: Significant left pleural effusion. HEART AND MEDIASTINUM: Heart is enlarged. BONES AND SOFT TISSUES: No acute findings. IMPRESSION: Cardiomegaly with increased pulmonary vascularity in the right lung. Signed by: Dr. Roland Morales DO on 09/25/2018 10:18 AM
--- NOTE | 2018-09-25 11:49 | NUR ---
Informed attending MD that patient's urine output is between 45-30cc's every 2 hrs. No new orders at this time, will continue to monitor. Orders also given for physical therapy.
--- NOTE | 2018-09-25 12:49 | NUR ---
Pulmonary Medicine DATE OF ENCOUNTER: 09/25/2018 SUBJECTIVE: patient had decortication yesterday. chest tubes x 2. very small air leak noted. patient eating well. no BM. ivf at 75/ hr, transient decreased UOP? REVIEW OF SYSTEMS: no double vision, no headaches OBJECTIVE: VITAL SIGNS: Vital signs noted per the chart record. GENERAL: NAD, sitting up. HEENT: Normocephalic and atraumatic. NECK: Supple. Throat midline. LUNGS: Decreased breath sounds on the left side, right side mostly clear. CARDIOVASCULAR: S1, S2. No murmurs, rubs, or gallops. ABDOMEN: Soft and nontender. EXTREMITIES: No clubbing, no cyanosis, 1+ trace edema. INTEGUMENT: No rash or purpura. LABORATORY DATA: 19 bun, cr 1.0. 21 hco3. 18 wbc, 27 hct., 231 plt. IMPRESSION AND PLAN: 1. Acute pneumonia, community-acquired. 2. Parapneumonic/complicated left-sided pleural effusion +/- lung abscess, subacute likely. post operative state, s/p surgical decortication + lung 3. Moderate hypoalbuminemia. 4. Mild anemia. 5. Recent prednisone use x 2 weeks (for rash on her body) 6. History of daily allergies. 7. Daily gastroesophageal reflux disease. 8. Former smoker, 50 pack years. 9. History of variable environmental exposures. 10. History of hypertension, hypothyroidism, anxiety/depression/chronic back pain, neuropathy. 11. gi bleed Continue high-dose antibiotics. Await cultures including pleural studies with pathology. Maintain chest tubes. follow chest tube air leak PT consult. Follow up respiratory status closely. Needs BMs Thank you very much, Dr. Apple and Dr. Roldan for allowing me a chance to participate in the care of Ms. Jean. Please do not hesitate to contact me if I can help in anyway.
--- NOTE | 2018-09-25 15:06 | Progress Note ---
DATE: 09/25/2018 SUBJECTIVE: The patient is doing well today with no complaints. Still has significant amount of output from the chest tube. PHYSICAL EXAMINATION: VITAL SIGNS: Temperature is 98.4, pulse 85, respirations 18, blood pressure 116/83, pulse ox 100% on nasal cannula 3 L. GENERAL: Not in acute distress. Alert and oriented x3. Cooperative on examination. HEENT: Head is normocephalic and atraumatic. Eyes; pupils are equal, round, and reactive to light bilaterally. Extraocular movements are intact bilaterally. NECK: Supple. Good range of motion throughout. No evidence of any erythema or exudates in the posterior pharynx. Has poor dentition. PULMONARY: Clear to auscultation bilaterally. No wheezing, no rales, no rhonchi, no crackles appreciated. CARDIOVASCULAR: Positive S1, S2. No murmurs, rubs, or gallops appreciated. ABDOMEN: Soft, nondistended, nontender to palpation. Bowel sounds present. MUSCULOSKELETAL: Strength is 5/5 throughout. No evidence of any muscle deficits on examination. No weakness appreciated. NEUROLOGIC: Cranial nerves II through XII grossly intact. No evidence of any neurological deficits on exam. SKIN: Intact. Warm to touch. Good cap refill. PSYCHIATRIC: Normal affect and mood. EXTREMITIES: No edema. Good range of motion throughout. LABORATORY FINDINGS: Show white count 18, hemoglobin 8.4, hematocrit is 27, and platelets of 231. Chemistry; sodium 137, potassium 4.3, chloride 108, bicarb 21, anion gap of 12, BUN is 19, creatinine is 1, glucose 140. Microbiology; all cultures are pending. IMPRESSION: 1. Community-acquired pneumonia with loculated lung with diffuse, status post thoracotomy with two chest tubes placed on 09/25/2018. 2. Hypotension, resolved. 3. Coffee-ground emesis with concerns of upper gastrointestinal bleed. We will defer EGD as a later date due on respiratory issues. 4. Hypothyroidism. 5. Depression. 6. Morbid obesity. PLAN: At this time, continue to monitor the patient closely. This is postop day #1. Chest tubes are still having some effusion. Monitor cultures and IV antibiotics. ID is following. Pulmonary and CV surgery is monitoring the chest tubes. Get a.m. labs. The patient will be here for significant period of time. Cooperative, just monitor very closely. Encourage ambulation with PT. MD NICOLE Marrero/SANDI /[id number]
[2018-09-25] MEDS: AZITHROMYCIN 500MG/NS 250 ML 250 ML IV SCH (16:32)
[2018-09-25] MEDS: VANCOMYCIN 1GM/NS 250 ML 250 ML IV SCH (20:30)
[2018-09-25] MEDS: PRAVASTATIN 20 MG TAB PO SCH (21:23)
[2018-09-25] MEDS: HYDROCODONE/APAP 5MG-325MG TAB PO PRN (21:23)
[2018-09-26] VITALS (16 sets, daily range): BP systolic 94–115; BP diastolic 49–67
[2018-09-26] MEDS: PANTOPRAZOLE 40 MG 10ML VIAL IV SCH (01:28)
[2018-09-26] MEDS: HYDROCODONE/APAP 5MG-325MG TAB PO PRN ×2 (03:42→11:36)
[2018-09-26 04:55] LABS: BASOPHILS # (AUTO) 0.1 (0.0-0.1); BASOPHILS % 0.4 % (0.0-1.0); EOSINOPHILS # (AUTO) 0.5 (0.0-0.4); HEMATOCRIT 25.1 % (34.2-44.1); HEMOGLOBIN 7.9 g/dL (12.0-16.0); LYMPHOCYTES # (AUTO) 0.9 (1.0-3.2); LYMPHOCYTES % 5.3 % (18.0-39.1); MEAN CORPUSCULAR HEMOGLOBIN 28.7 pg (28-32); MEAN CORPUSCULAR HGB CONC 31.5 g/dL (31-35); MEAN CORPUSCULAR VOLUME 91.3 fL (81-99); MONOCYTES # (AUTO) 0.7 (0.2-0.8); MONOCYTES % 4.3 % (4.4-11.3); NEUTROPHILS # (AUTO) 14.5 (2.1-6.9); NEUTROPHILS % 85.8 % (38.7-80.0); PLATELET COUNT 238 x10e3/uL (140-360); RED BLOOD COUNT 2.75 x10e6/uL (3.6-5.1)
[2018-09-26] MEDS: MORPHINE SULFATE INJ 4 MG/ML INJ 1ML IV PRN ×2 (05:06→20:03)
[2018-09-26 05:13] LABS: ANION GAP 11.3 mmol/L (8-16); CALCIUM 8.4 mg/dL (8.4-10.2); CREATININE, SERUM 1.37 mg/dL (0.57-1.11); MAGNESIUM 1.8 MG/DL (1.3-2.1); POTASSIUM 4.3 mmol/L (3.5-5.1)
[2018-09-26] MEDS: PIPER-TAZ 3.375 GM 50 ML IV SCH ×3 (05:25→17:07)
[2018-09-26] MEDS: LEVOTHYROXINE SODIUM 100 MCG TAB PO SCH (05:25)
--- NOTE | 2018-09-26 06:28 | Diagnostic Imaging Report ---
EXAMINATION: CHEST SINGLE (PORTABLE) INDICATION: ^S/P THORACOTOMY ^[id number] ^[id number] COMPARISON: 09/25/2018 FINDINGS: AP view TUBES and LINES: Stable left-sided chest tubes and right PICC. LUNGS: Limited by body habitus. Lungs are well inflated. Again seen opacification of the most of the left lung. PLEURA: No visible pneumothorax. HEART AND MEDIASTINUM: The cardiomediastinal silhouette is obscured, however enlarged. BONES AND SOFT TISSUES: No acute osseous lesion. Soft tissues are unremarkable. UPPER ABDOMEN: No free air under the diaphragm. IMPRESSION: Improved aeration of the lungs when compared to prior x-ray, likely due to better inspiration. Again seen left lung opacities, representing asymmetric edema or combination of atelectasis and effusion. Underlying pneumonia cannot be excluded. Signed by: Dr. Isaac Sepulveda MD on 09/26/2018 6:24 AM
[2018-09-26] MEDS: ASPIRIN 81 MG CHEW TAB PO SCH (08:10)
[2018-09-26] MEDS: BUPROPION HCL 150 MG TABCR PO SCH (08:10)
[2018-09-26] MEDS: AMLODIPINE BESYLATE 10 MG TAB PO SCH (08:10)
[2018-09-26] MEDS: DOCUSATE SODIUM 100 MG CAP PO SCH ×2 (08:10→16:03)
[2018-09-26] MEDS: METOPROLOL TARTRATE 50 MG TAB PO SCH (08:10)
[2018-09-26] MEDS: LAMOTRIGINE 100 MG TAB PO SCH (08:10)
[2018-09-26] MEDS: ALLOPURINOL 300 MG TAB PO SCH (08:10)
[2018-09-26] MEDS: VENLAFAXINE HCL 37.5MG XR CAP PO SCH (08:10)
[2018-09-26] MEDS: ENOXAPARIN SOD INJ 40 MG/0.4 ML SYR SC SCH (16:03)
--- NOTE | 2018-09-26 16:31 | NUR ---
Nutrition Follow-up Note RD Recommendation for Physician: - Continue current diet as ordered Plan of Care: Patient has been screened and assessed for nutrition risk. At this time, the patient does not pose any nutrition risk. No further nutrition intervention is warranted at this time. Will re-evaluate if consulted by medical staff. Nutrition reason for involvement: Follow up Primary Diagnose(s): pleural effusion, PNA PMH: hypertension, chronic back pain, depression, hypothyroidism, hyperlipidemia Ht: 64in Wt: 212.38lb; 225.37lb BMI: 36.5kg/m2 IBW: 120lb RD Assessment: (09/26) Visited pt in the room. Pt reported good appetite. Pt complained of lack of salt in her meals. Explained the purpose of cardiac diet and discussed menu options. No complains of nausea or vomiting. No chewing or swallowing difficulty. Current diet is appropriate and adequate. (09/21) Chart reviewed. Labs and meds reviewed. 73yo F, who was admitted for pleural effusion. CT-guided left thoracentesis was done today. Visited pt in the room. Pt reported fair appetite with 100% recorded meal intake. Pt also reported 12lbs weight gain since started on Prednisone. Pt denied any nausea or vomiting. LBM 09/20. Pt No complains of chewing or swallowing difficulty. Will continue to monitor and follow. Current Diet: cardiac diet Malnutrition Evaluation (09/21/2018) The patient does not meet criteria for a specified degree of malnutrition at this time. Will re-evaluate at follow-up as appropriate. Diet Education Needs Assessment: Diet education not indicated. Nutrition Care Level: low Signed: Anjelica Acosta, MS, RD, LD
[2018-09-26] MEDS: SODIUM CHLORIDE 0.9% 1000ML 1,000 ML IV SCH (17:07)
--- NOTE | 2018-09-26 18:04 | Progress Note ---
DATE: 09/26/2018 Cardiology Progress Note SUBJECTIVE: No major events overnight. OBJECTIVE: VITAL SIGNS: Temperature afebrile, pulse 61, respiratory rate 15, blood pressure 107/58 saturating 98% on nasal cannula. GENERAL: Obese white female, in no acute distress. CARDIOVASCULAR: Regular rate and rhythm. No murmurs, rubs, or gallops. LUNGS: Clear to auscultation bilaterally. Coarse breath sounds, left lower base. Chest tube is in place. ABDOMEN: Obese, soft, nontender, nondistended. NEURO AND PSYCH: Alert and oriented to person, place, and time. Normal affect. INPATIENT MEDICATIONS: Reviewed. LABORATORY DATA: Reviewed. TELEMETRY DATA: Reviewed, shows normal sinus rhythm. ASSESSMENT: 1. Complicated pneumonia, status post thoracotomy and decortication. 2. Forty pack-year smoking history. 3. Hypertension. PLAN: Continues to do well postoperatively from cardiovascular standpoint. Continue current cardiovascular regimen. Hold antihypertensives for now given borderline blood pressures. Resume when she is improved postoperatively. Thank you for this consult. We will continue to follow. MD JORDEN Hernández/SANDI /[id number]
--- NOTE | 2018-09-26 19:38 | NUR ---
Pulmonary Medicine DATE OF ENCOUNTER: 09/26/2018 SUBJECTIVE: remains in the icu s/p decortication chest tubes x 2. no air leak noted. patient eating well. 300 cc UOP / last 12 hrs REVIEW OF SYSTEMS: no double vision, no headaches OBJECTIVE: VITAL SIGNS: Vital signs noted per the chart record. GENERAL: NAD, sitting up. HEENT: Normocephalic and atraumatic. NECK: Supple. Throat midline. LUNGS: Decreased breath sounds on the left side, right side mostly clear. CARDIOVASCULAR: S1, S2. No murmurs, rubs, or gallops. ABDOMEN: Soft and nontender. EXTREMITIES: No clubbing, no cyanosis, 1+ trace edema. INTEGUMENT: No rash or purpura. LABORATORY DATA: 19 bun, cr 1.0. 21 hco3. 18 wbc, 27 hct., 231 plt. IMPRESSION AND PLAN: 1. Acute pneumonia, community-acquired. 2. Parapneumonic/complicated left-sided pleural effusion +/- lung abscess, subacute likely. post operative state, s/p surgical decortication + lung 3. Moderate hypoalbuminemia. 4. Mild anemia. 5. Recent prednisone use x 2 weeks (for rash on her body) 6. History of daily allergies. 7. Daily gastroesophageal reflux disease. 8. Former smoker, 50 pack years. 9. History of variable environmental exposures. 10. History of hypertension, hypothyroidism, anxiety/depression/chronic back pain, neuropathy. 11. gi bleed Continue high-dose antibiotics. Await cultures including pleural studies with pathology. Maintain chest tubes. follow chest tube air leak PT consult. Follow up respiratory status closely. Needs BMs ensure enough fluids and UOP Thank you very much, Dr. Apple and Dr. Roldan for allowing me a chance to participate in the care of Ms. Jean. Please do not hesitate to contact me if I can help in anyway.
[2018-09-26] MEDS: VANCOMYCIN 1GM/NS 250 ML 250 ML IV SCH ×2 (19:45→20:30)
--- NOTE | 2018-09-26 19:49 | Progress Note ---
DATE: 09/26/2018 Medicine Progress Note SUBJECTIVE: The patient is doing much better today. She is alert and oriented x4 with no issues. She has minimal pain, worked with PT and OT. Discussed case with nursing staff. She is having minimal urine output and had some episodes of hypotension as well, not drinking enough fluids. OBJECTIVE: VITAL SIGNS: Temperature is 97.6, pulse 61, respiratory rate is 15, and blood pressure 107/58. She had some low systolic blood pressures in the 90s. She is on 98% on 3 L nasal cannula. GENERAL: Not in acute distress. Alert and oriented x3. Cooperative on examination. HEENT: Head is normocephalic and atraumatic. Eyes, pupils are equal, round, and reactive to light bilaterally. Extraocular movements intact bilaterally. Throat, no evidence of any erythema or exudates in the posterior pharynx. Has poor dentition. NECK: Supple. Good range of motion. PULMONARY: Clear to auscultation bilaterally. No wheezing, no rales, no rhonchi, no crackles appreciated. CARDIOVASCULAR: Positive S1 and S2. No murmurs, rubs, or gallops appreciated. ABDOMEN: Soft, nondistended, and nontender to palpation. Bowel sounds present. MUSCULOSKELETAL: Strength is 5/5 throughout. No evidence of any muscle deficits on examination. No weakness appreciated. NEUROLOGICAL: Cranial nerves II through XII are grossly intact. No evidence of any neurological deficits on exam. SKIN: Intact. Warm to touch. Good cap refill. PSYCHIATRIC: Normal affect and mood. EXTREMITIES: No edema. Good range of motion throughout. LABORATORY FINDINGS: Show white count 16.9, hemoglobin 7.9, hematocrit is 25, and platelets of 238. Chemistry; sodium 136, potassium 4.3, chloride 107, bicarb 22, anion gap of 11, BUN 2, creatinine is 1.37, calcium is 8.4, and magnesium is 1.8. MICROBIOLOGY: All the pleural fluid cultures are all pending, nothing no growth to date at the current moment. IMPRESSION: 1. Community-acquired pneumonia with loculated left lung, status post thoracotomy with 2 chest tubes placed on 09/25/2018. 2. Hypotension, still present. 3. Coffee-ground emesis with concerns of upper gastrointestinal bleed-hemoglobin is down trending, but she is not currently a candidate for EGD due to her current respiratory status. GI is following. 4. Hypothyroidism. 5. Depression. 6. Morbid obesity. 7. Acute kidney injury secondary to prerenal azotemia as well as from underlying hypertension. PLAN: At this time, this is postop day #2. Chest tubes are doing well. Pain is well controlled. All cultures, no growth. Monitor closely. Continue IV antibiotics. ID following. Pulmonary and CV Surgery is following as well. Add IV fluids due to acute kidney injury. Repeat labs in the morning. Encourage ambulation with physical therapy. MD NICOLE Marrero/MODL /[id number]
[2018-09-26] MEDS: PRAVASTATIN 20 MG TAB PO SCH (20:03)
[2018-09-26] MEDS: PANTOPRAZOLE SOD 40 MG TABEC PO SCH (20:03)
[2018-09-26] MEDS ORDERED: PANTOPRAZOLE SOD 40 MG TABEC PO SCH (21:00)
[2018-09-27] VITALS (18 sets, daily range): BP systolic 99–133; BP diastolic 54–80
[2018-09-27] MEDS: PIPER-TAZ 3.375 GM 50 ML IV SCH ×5 (00:44→23:09)
[2018-09-27] MEDS: SODIUM CHLORIDE 0.9% 1000ML 1,000 ML IV SCH (00:44)
[2018-09-27] MEDS: LEVOTHYROXINE SODIUM 100 MCG TAB PO SCH (05:14)
[2018-09-27] MEDS: GUAIFENESIN/CODEINE 10 ML CUP PO PRN ×2 (05:21→14:17)
[2018-09-27 05:23] LABS: BASOPHILS # (AUTO) 0.1 (0.0-0.1); BASOPHILS % 0.5 % (0.0-1.0); EOSINOPHILS # (AUTO) 0.7 (0.0-0.4); EOSINOPHILS % 6.1 % (0.0-6.0); HEMATOCRIT 23.9 % (34.2-44.1); HEMOGLOBIN 7.7 g/dL (12.0-16.0); LYMPHOCYTES # (AUTO) 0.8 (1.0-3.2); LYMPHOCYTES % 6.3 % (18.0-39.1); MEAN CORPUSCULAR HEMOGLOBIN 28.7 pg (28-32); MEAN CORPUSCULAR HGB CONC 32.2 g/dL (31-35); MEAN CORPUSCULAR VOLUME 89.2 fL (81-99); MONOCYTES # (AUTO) 0.4 (0.2-0.8); MONOCYTES % 3.6 % (4.4-11.3); NEUTROPHILS # (AUTO) 9.9 (2.1-6.9); PLATELET COUNT 271 x10e3/uL (140-360); RED BLOOD COUNT 2.68 x10e6/uL (3.6-5.1); RED CELL DISTRIBUTION WIDTH 14.9 % (11.7-14.4)
[2018-09-27 05:36] LABS: ANION GAP 12.3 mmol/L (8-16); CALCIUM 8.2 mg/dL (8.4-10.2); CREATININE, SERUM 1.15 mg/dL (0.57-1.11); POTASSIUM 4.3 mmol/L (3.5-5.1)
--- NOTE | 2018-09-27 06:09 | Diagnostic Imaging Report ---
EXAMINATION: CHEST SINGLE (PORTABLE) INDICATION: ^S/P THORACOTOMY ^[id number] ^0530 COMPARISON: 09/26/2018 FINDINGS: AP view TUBES and LINES: Stable left-sided chest tubes and right PICC. LUNGS: Limited by body habitus. Again seen opacification of the most of the left lung and right central peribronchovascular thickening/cuffing. PLEURA: No visible pneumothorax. HEART AND MEDIASTINUM: The cardiomediastinal silhouette is obscured, however enlarged. BONES AND SOFT TISSUES: No acute osseous lesion. Unchanged left neck base and left upper chest wall emphysema. UPPER ABDOMEN: No free air under the diaphragm. IMPRESSION: No change from prior exam. Signed by: Dr. Isaac Sepulveda MD on 09/27/2018 6:05 AM
--- NOTE | 2018-09-27 07:10 | NUR ---
Pt received resting in bed. Alert and oriented x3. Oriented to staff and surroundings. Oriented to staff and surroundings. Encouraged to press call jackson if help needed. Pt verbalized understanding of teaching. Will monitor
--- NOTE | 2018-09-27 08:10 | NUR ---
All meds given as ordered. Pt with two left sided chest tubes. Will monitor
[2018-09-27] MEDS: DOCUSATE SODIUM 100 MG CAP PO SCH ×2 (08:42→17:23)
[2018-09-27] MEDS: ASPIRIN 81 MG CHEW TAB PO SCH (08:42)
[2018-09-27] MEDS: POLYETHYLENE GLYCOL 3350 17 GM PACK PO SCH ×2 (08:42→17:23)
[2018-09-27] MEDS: VENLAFAXINE HCL 37.5MG XR CAP PO SCH (08:42)
[2018-09-27] MEDS: LAMOTRIGINE 100 MG TAB PO SCH (08:42)
[2018-09-27] MEDS: METOPROLOL TARTRATE 50 MG TAB PO SCH (08:42)
[2018-09-27] MEDS: ALLOPURINOL 300 MG TAB PO SCH (08:43)
[2018-09-27] MEDS: PANTOPRAZOLE SOD 40 MG TABEC PO SCH ×2 (08:43→20:24)
[2018-09-27] MEDS: AMLODIPINE BESYLATE 10 MG TAB PO SCH (08:43)
[2018-09-27] MEDS: BUPROPION HCL 150 MG TABCR PO SCH (08:43)
--- NOTE | 2018-09-27 10:55 | Progress Note ---
DATE: 09/27/2018 Cardiology progress note SUBJECTIVE: No major events overnight. OBJECTIVE: VITAL SIGNS: Temperature afebrile, pulse 77, respiratory rate 16, blood pressure 132/65, and saturating 96% on nasal cannula. GENERAL: An obese white female, in no acute distress. CARDIOVASCULAR: Regular rate and rhythm. No murmurs, rubs, or gallops. LUNGS: Clear to auscultation. Coarse breath sounds, left lower base. Chest tubes in place. ABDOMEN: Obese, soft, nontender, nondistended. NEURO AND PSYCH: Alert and oriented to person and time. Normal affect. INPATIENT MEDICATIONS: Reviewed. LABORATORY DATA: Reviewed. TELEMETRY DATA: Reviewed shows normal sinus rhythm. ASSESSMENT: 1. Complicated pneumonia, status post thoracotomy and decortication. 2. History of heavy smoking. 3. Hypertension. 4. Hyperlipidemia. PLAN: Doing well postoperatively from a cardiovascular standpoint. Continue current cardiovascular medications. We will continue to follow. MD JORDEN Hernández/SANDI /[id number]
--- NOTE | 2018-09-27 11:10 | NUR ---
10ML of serous fluid noted in chest tube canister during this shift. Dr. Roblero at bedside. Will follow up
--- NOTE | 2018-09-27 13:20 | NUR ---
Pt resting in bed with at bedside. Emotional support given. Pt tolerated 60% of her lunch. Will monitor
[2018-09-27] MEDS: HYDROCODONE/APAP 5MG-325MG TAB PO PRN (14:17)
--- NOTE | 2018-09-27 16:04 | Progress Note ---
DATE: 09/27/2018 Medicine Progress Note SUBJECTIVE: The patient is doing well today with no complaints. She still has 2 chest tubes. Blood pressure is better improved. Good urine output. No overnight events. OBJECTIVE: VITAL SIGNS: Temperature is 98.3, pulse 72, respiratory rate is 16, blood pressure 132/80, and pulse ox 93% on nasal cannula 3 L. GENERAL: Not in acute distress. Alert and oriented x3. Cooperative on examination. HEENT: Head is normocephalic and atraumatic. Eyes; pupils are equal, round, and reactive to light bilaterally. Extraocular movements are intact bilaterally. Throat, no evidence of any erythema or exudates in the posterior pharynx. Has poor dentition. NECK: Supple. Good range of motion. PULMONARY: Clear to auscultation bilaterally. No wheezing, no rales, no rhonchi, no crackles appreciated. CARDIOVASCULAR: Positive S1 and S2. No murmurs, rubs, or gallops appreciated. ABDOMEN: Soft, nondistended, and nontender to palpation. Bowel sounds present. MUSCULOSKELETAL: Strength is 5/5 throughout. No evidence of any muscle deficits on examination. No weakness appreciated. NEUROLOGICAL: Cranial nerves II through XII are grossly intact. No evidence of any neurological deficits on exam. SKIN: Intact. Warm to touch. Good cap refill. PSYCHIATRIC: Normal mood and affect. EXTREMITIES: No edema. Good range of motion throughout. LABORATORY FINDINGS: Show white count 12, hemoglobin 7.7, hematocrit is 24, and platelets of 271. Chemistries revealed sodium 137, potassium 4.3, chloride 107, bicarb of 22, anion gap of 12, BUN 19, creatinine is 1.1, glucose 86, and calcium 8.2. MICROBIOLOGY: All cultures are pending, no growth today. IMAGING STUDIES: Chest x-ray performed this morning shows no change from yesterday. Still shows opacification of the left lung with right central peribronchovascular thickening and cuffing. IMPRESSION: 1. Community-acquired pneumonia with loculated left lung, status post thoracotomy with 2 chest tubes placed on 09/25/2018. 2. Hypotension, resolved. 3. Coffee-ground emesis with concerns of upper gastrointestinal bleed. Hemoglobin down trending, but she is not currently an EGD candidate due to recent respiratory distress and GI is following. Hemoglobin is 7.7 today. We will monitor. 4. Hypothyroidism. 5. Depression. 6. Morbid obesity. 7. Acute kidney injury secondary to prerenal azotemia from underlying hypotension. PLAN: At this time, this is postop day #3. She is doing well. Still has chest tubes. Chest x-ray reviewed. I discussed the case with Pulmonary. She is on IV antibiotics, being monitored by ID. Vascular Surgery is also following as well. All cultures have been no growth to date. Continue with IV antibiotics. Get repeat labs in the morning. Her hemoglobin is 7.7. She is currently asymptomatic. We will monitor and if it is lower tomorrow, we will consider blood transfusion. MD NICOLE Marrero/SANDI /[id number]
[2018-09-27] MEDS: ENOXAPARIN SOD INJ 40 MG/0.4 ML SYR SC SCH (17:23)
--- NOTE | 2018-09-27 17:35 | NUR ---
Assisted Dr. Sutton with the removal of both chest tubes. Emotional support given. care provided. Will give pain meds as ordered.
[2018-09-27] MEDS: MORPHINE SULFATE INJ 4 MG/ML INJ 1ML IV PRN (17:50)
--- NOTE | 2018-09-27 18:10 | NUR ---
Radiology at bedside for stat Xray
--- NOTE | 2018-09-27 18:55 | Diagnostic Imaging Report ---
EXAMINATION: CHEST SINGLE (PORTABLE) COMPARISON: Chest x-ray 1739 hours INDICATION: ^s/p removal of 2 chest tubes ^[id number] ^1813 ^Y DISCUSSION: Frontal view of the chest obtained at 1813 hours. HEART AND MEDIASTINUM: Left heart border is partially visualized. LINES: 2 left chest tubes have been removed. No pneumothorax. Right PICC line terminates in the SVC. LUNGS: Interstitial prominence of the left lung is similar. Pulmonary vascular markings are prominent in the right lung and grossly stable. There is mild right basilar atelectasis PLEURA: Loculated left basilar pleural effusion cannot be excluded. There is suggestion of left pleural thickening. There is a small right pleural effusion. BONES AND SOFT TISSUES: Stable. IMPRESSION: Interval removal of 2 left chest tubes without pneumothorax. Prominence of the left pulmonary interstitium is similar. Left pleural thickening and suspected loculated left pleural effusion is stable. Mild vascular congestion of the right lung with right basilar atelectasis and small pleural effusion. Signed by: Dr. Mark Gordon MD on 09/27/2018 6:51 PM
[2018-09-27] MEDS: PRAVASTATIN 20 MG TAB PO SCH (20:24)
--- NOTE | 2018-09-27 23:14 | NUR ---
Pulmonary Medicine DATE OF ENCOUNTER: 09/27/2018 SUBJECTIVE: ate > 50% Normal saline 100 cc/h IV fluid Chest tube x2 with 10 cc over 4 hours. No active air leak. REVIEW OF SYSTEMS: no double vision, no headaches OBJECTIVE: VITAL SIGNS: Vital signs noted per the chart record. GENERAL: NAD, sitting up. HEENT: Normocephalic and atraumatic. NECK: Supple. Throat midline. LUNGS: Decreased breath sounds on the left side, right side mostly clear. CARDIOVASCULAR: S1, S2. No murmurs, rubs, or gallops. ABDOMEN: Soft and nontender. EXTREMITIES: No clubbing, no cyanosis, 1+ trace edema. INTEGUMENT: No rash or purpura. LABORATORY DATA: 4.3 potassium, 1.2 creatinine. 12 white count, 24 hematocrit, 201 platelets per IMPRESSION AND PLAN: 1. Acute pneumonia, community-acquired. 2. Parapneumonic/complicated left-sided pleural effusion +/- lung abscess, subacute likely. post operative state, s/p surgical decortication + lung 3. Moderate hypoalbuminemia. 4. Mild anemia. 5. Recent prednisone use x 2 weeks (for rash on her body) 6. History of daily allergies. 7. Daily gastroesophageal reflux disease. 8. Former smoker, 50 pack years. 9. History of variable environmental exposures. 10. History of hypertension, hypothyroidism, anxiety/depression/chronic back pain, neuropathy. 11. gi bleed Continue high-dose antibiotics. Await cultures including pleural studies with pathology. Discontinue chest tubes. PT Follow-up Follow up respiratory status closely. Needs BMs- miralax Improved urine output, stop IV fluid Thank you very much, Dr. Apple and Dr. Roldan for allowing me a chance to participate in the care of Ms. Jean. Please do not hesitate to contact me if I can help in anyway.
[2018-09-28 04:17] VITALS: BP 109/47
[2018-09-28 04:52] LABS: BASOPHILS # (AUTO) 0.1 (0.0-0.1); BASOPHILS % 0.5 % (0.0-1.0); EOSINOPHILS # (AUTO) 0.6 (0.0-0.4); EOSINOPHILS % 6.2 % (0.0-6.0); HEMATOCRIT 23.8 % (34.2-44.1); HEMOGLOBIN 7.7 g/dL (12.0-16.0); LYMPHOCYTES # (AUTO) 0.9 (1.0-3.2); LYMPHOCYTES % 8.3 % (18.0-39.1); MEAN CORPUSCULAR HEMOGLOBIN 28.6 pg (28-32); MEAN CORPUSCULAR HGB CONC 32.4 g/dL (31-35); MEAN CORPUSCULAR VOLUME 88.5 fL (81-99); MONOCYTES # (AUTO) 0.4 (0.2-0.8); MONOCYTES % 3.9 % (4.4-11.3); NEUTROPHILS # (AUTO) 8.1 (2.1-6.9); NEUTROPHILS % 78.8 % (38.7-80.0); PLATELET COUNT 263 x10e3/uL (140-360); RED BLOOD COUNT 2.69 x10e6/uL (3.6-5.1); RED CELL DISTRIBUTION WIDTH 14.9 % (11.7-14.4)
--- NOTE | 2018-09-28 05:01 | NUR ---
bed bath rios care and Zuniga care given, patient tolerated well.
[2018-09-28] MEDS: LEVOTHYROXINE SODIUM 100 MCG TAB PO SCH (05:08)
[2018-09-28] MEDS: PIPER-TAZ 3.375 GM 50 ML IV SCH ×3 (05:08→17:41)
[2018-09-28 05:35] LABS: FERRITIN 435.43 ng/mL (4.63-204.00)
--- NOTE | 2018-09-28 07:32 | Diagnostic Imaging Report ---
EXAMINATION: CHEST SINGLE (PORTABLE) INDICATION: ^S/P THORACOTOMY ^[id number] ^0600 COMPARISON: 09/27/2018, CT chest 09/20/2018 FINDINGS: AP view TUBES and LINES: Stable right PICC with tip overlying the mid SVC. LUNGS: Persistent near opacification of the left hemithorax with unchanged aeration of the left upper lobe. Right lung is well-expanded with associated mild interstitial edema, unchanged. PLEURA: Large loculated left pleural effusion, unchanged. No pneumothorax. HEART AND MEDIASTINUM: The cardiac silhouette is obscured but appear normal in size. BONES AND SOFT TISSUES: Left thoracotomy postsurgical changes. Subcutaneous air in the supraclavicular region, unchanged. UPPER ABDOMEN: No free air under the diaphragm. IMPRESSION: Left thoracotomy post surgical changes with unchanged mild aeration of the left upper lobe. Signed by: Dr. Nayla Melton M.D. on 09/28/2018 7:28 AM
[2018-09-28 08:00] VITALS: BP 134/66
[2018-09-28] MEDS: VENLAFAXINE HCL 37.5MG XR CAP PO SCH (08:49)
[2018-09-28] MEDS: DOCUSATE SODIUM 100 MG CAP PO SCH ×3 (08:49→20:53)
[2018-09-28] MEDS: LAMOTRIGINE 100 MG TAB PO SCH (08:49)
[2018-09-28] MEDS: ASPIRIN 81 MG CHEW TAB PO SCH (08:49)
[2018-09-28] MEDS: ALLOPURINOL 300 MG TAB PO SCH (08:50)
[2018-09-28] MEDS: METOPROLOL TARTRATE 50 MG TAB PO SCH (08:50)
[2018-09-28] MEDS: PANTOPRAZOLE SOD 40 MG TABEC PO SCH (08:50)
[2018-09-28] MEDS: AMLODIPINE BESYLATE 10 MG TAB PO SCH (08:50)
[2018-09-28] MEDS: BUPROPION HCL 150 MG TABCR PO SCH (08:50)
[2018-09-28] MEDS: POLYETHYLENE GLYCOL 3350 17 GM PACK PO SCH ×2 (08:50→17:41)
[2018-09-28 12:00] VITALS: BP 118/63
--- NOTE | 2018-09-28 12:28 | Progress Note ---
DATE: 09/28/2018 Cardiology Progress Note SUBJECTIVE: The patient does endorse some shortness of breath and some abdominal discomfort. Denies any chest pain or palpitations. OBJECTIVE: VITAL SIGNS: Temperature 98.0, pulse 67, respiratory rate 16, blood pressure 134/66, oxygen saturation 95% on 3 L nasal cannula. GENERAL: Resting comfortably in the chair. Does not appear to be in any acute distress. NECK: Supple. No JVD noted. CARDIOVASCULAR: Regular rate and rhythm. Normal S1, S2. No murmurs, no gallops. LUNGS: Left lower lobe and upper lobes with scattered crackles and coarse breath sounds. Otherwise clear to auscultation. ABDOMEN: Rounded, soft, nontender. EXTREMITIES: Lower extremity trace edema bilaterally. CARDIOVASCULAR MEDICATIONS: Metoprolol 50 mg p.o. daily, amlodipine 10 mg p.o. daily, aspirin 81 mg p.o. daily, Lovenox 40 mg subcu daily. LABORATORY DATA: WBC 10.27, hemoglobin 7.7, hematocrit 23.3, platelets 263. Sodium 137, potassium 4.3, BUN 19, creatinine 1.15, GFR 46. Chest x-ray from this morning with the left thoracotomy post surgical changes with unchanged mild dilation of the left upper lobe. TELEMETRY: Normal sinus rhythm. IMPRESSION: 1. Complicated pneumonia, status post thoracotomy and decortication. 2. Smoker. 3. Hypertension. 4. Hyperlipidemia. PLAN: Continue to monitor her postoperatively. The patient is stable from a cardiac standpoint. Continue the above-listed cardiac medications. We will continue to follow this patient very closely. Dictated by Radha Shelley NP MD CHICO Dejesus/SANDI /[id number]
--- NOTE | 2018-09-28 14:13 | Progress Note ---
DATE: 09/28/2018 SUBJECTIVE: The patient chest tubes were removed yesterday. She is currently doing well, sitting in a chair with no complaints. Eating her lunch. PHYSICAL EXAMINATION: VITAL SIGNS: Temperature 98, pulse 67, respiratory rate 16, blood pressure 134/66, pulse ox 95% on 3 L nasal cannula. GENERAL: Not in acute distress. Alert, oriented x3. Cooperative on examination. HEENT: Head is normocephalic and atraumatic. Eyes, pupils are equal, round, and reactive to light bilaterally. Extraocular movements are intact bilaterally. NECK: Supple. Good range of motion throughout. No evidence of erythema or exudates in the posterior pharynx. Has poor dentition. PULMONARY: Clear to auscultation bilaterally. No rales. No wheezes, no rales, no rhonchi, no crackles appreciated. CARDIOVASCULAR: Positive S1, S2. No murmurs, rubs, or gallops appreciated. ABDOMEN: Soft, nondistended, and nontender to palpation. Bowel sounds present. MUSCULOSKELETAL: Strength is 5/5 throughout. No evidence of any muscle deficits on examination. No weakness appreciated. NEUROLOGICAL: Cranial nerves II through XII grossly intact. No evidence of any neurological deficits on exam. SKIN: Intact. Warm to touch. Good cap refill. PSYCHIATRIC: Normal affect and mood. EXTREMITIES: No edema. Good range of motion throughout. LABORATORY FINDINGS: Show white count 10.2, hemoglobin 7.7, hematocrit 24, platelets of 263. Chemistry; sodium 137, potassium 4.3, chloride 107, bicarb 22, anion gap of 12, BUN 19, creatinine is 1.1. Iron saturation is 11%. Microbiology, so far no growth. IMPRESSION: 1. Community-acquired pneumonia with loculated left lung, status post thoracotomy with two chest tubes placed on 09/25/2018, now removed on 09/27/2018 with negative cultures. 2. Hypotension, resolved. 3. Coffee-ground emesis with concerns of upper gastrointestinal bleed, hemoglobin now stable at 7.7, EGD was deferred to a later date due to her underlying respiratory distress, but all now resolved. 4. Hypothyroidism. 5. Depression. 6. Morbid obesity. 7. Acute kidney injury secondary to prerenal azotemia from underlying hypotension. PLAN: At this time, this is postop day number four. Chest tubes have been removed yesterday. She is currently doing well with no complaints. Follow with Pulmonary CT surgery. Continue with IV antibiotics. All cultures have been back shows no growth today. Monitor hemoglobin at 7.7. Continue same plan of care, transfer to medical tele floor. MD NICOLE Marrero/SANDI /[id number]
--- NOTE | 2018-09-28 14:21 | NUR ---
Pulmonary Medicine DATE OF ENCOUNTER: 09/28/2018 SUBJECTIVE: 2 l/MIN OXYGEN 96% SAT WILLAMS no BM, eating most min assist up to chair and walk REVIEW OF SYSTEMS: no double vision, no headaches OBJECTIVE: VITAL SIGNS: Vital signs noted per the chart record. GENERAL: NAD, sitting up. HEENT: Normocephalic and atraumatic. NECK: Supple. Throat midline. LUNGS: Decreased breath sounds on the left side, right side mostly clear. CARDIOVASCULAR: S1, S2. No murmurs, rubs, or gallops. ABDOMEN: Soft and nontender. EXTREMITIES: No clubbing, no cyanosis, 1+ trace edema. INTEGUMENT: No rash or purpura. LABORATORY DATA: 10 wbc, 24 hct IMPRESSION AND PLAN: 1. Acute pneumonia, community-acquired. 2. Parapneumonic/complicated left-sided pleural effusion +/- lung abscess, subacute likely. post operative state, s/p surgical decortication + lung 3. Moderate hypoalbuminemia. 4. Mild anemia. 5. Recent prednisone use x 2 weeks (for rash on her body) 6. History of daily allergies. 7. Daily gastroesophageal reflux disease. 8. Former smoker, 50 pack years. 9. History of variable environmental exposures. 10. History of hypertension, hypothyroidism, anxiety/depression/chronic back pain, neuropathy. 11. gi bleed Continue high-dose antibiotics. Await cultures/pleural studies PT Follow-up, moboilze Follow up respiratory status closely. Needs BMs- miralax again lasix low dose home oxygen evaluation Thank you very much, Dr. Apple and Dr. Roldan for allowing me a chance to participate in the care of Ms. Jean. Please do not hesitate to contact me if I can help in anyway.
--- NOTE | 2018-09-28 14:28 | NUR ---
Pt received from ICU via wheelchair. Oriented to staff and surroundings. Call jackson within reach. Will monitor
[2018-09-28] MEDS ORDERED: FUROSEMIDE 20 MG TAB PO ONE (15:00)
[2018-09-28 16:08] VITALS: BP 127/60
[2018-09-28] MEDS ORDERED: SODIUM CHLORIDE 0.9% 250ML 250 ML ONE ×2 (17:13→20:27)
[2018-09-28] MEDS: ENOXAPARIN SOD INJ 40 MG/0.4 ML SYR SC SCH (17:41)
[2018-09-28 18:25] LABS: BASOPHILS % 0.4 % (0.0-1.0); EOSINOPHILS # (AUTO) 0.5 (0.0-0.4); EOSINOPHILS % 4.4 % (0.0-6.0); HEMATOCRIT 24.8 % (34.2-44.1); LYMPHOCYTES # (AUTO) 0.7 (1.0-3.2); LYMPHOCYTES % 6.5 % (18.0-39.1); MEAN CORPUSCULAR HEMOGLOBIN 28.4 pg (28-32); MEAN CORPUSCULAR HGB CONC 32.3 g/dL (31-35); MEAN CORPUSCULAR VOLUME 87.9 fL (81-99); MONOCYTES # (AUTO) 0.4 (0.2-0.8); MONOCYTES % 3.6 % (4.4-11.3); NEUTROPHILS # (AUTO) 8.8 (2.1-6.9); NEUTROPHILS % 82.5 % (38.7-80.0); PLATELET COUNT 280 x10e3/uL (140-360); RED BLOOD COUNT 2.82 x10e6/uL (3.6-5.1); RED CELL DISTRIBUTION WIDTH 14.8 % (11.7-14.4)
--- NOTE | 2018-09-28 18:27 | NUR ---
Pt had ONE episode of vomiting. Emesis was a mixture of undigested food & cranberry juice colored fluid. Dr. Momo Mejia notified. CBC done stat, and Protonix changed to IV Q12hrs. Will endorse to next shift
[2018-09-28 19:09] LABS: BAND NEUTROPHILS % (MANUAL) 1 %; EOSINOPHILS % (MANUAL) 2 % (0-7); LYMPHOCYTES % (MANUAL) 12 % (19-48); MONOCYTES % (MANUAL) 6 % (3.4-9.0); NEUTROPHILS % (MANUAL) 79 % (40-74); PLATELET ESTIMATE ADEQUATE; PLATELET MORPHOLOGY COMMENT NORMAL; RBC MORPHOLOGY COMMENT NORMAL
--- NOTE | 2018-09-28 19:15 | NUR ---
Bedside report completed with morning nurse. Assisted Pt from bathroom. Alert and orient to name. PICC right upper x2 in place. Denies pain at this time. Family at bedside. Call jackson within reach. Will continue to monitor.
[2018-09-28 20:00] VITALS: BP 133/69
[2018-09-28] MEDS: VANCOMYCIN 1GM/NS 250 ML 250 ML IV SCH (20:30)
[2018-09-28] MEDS: PANTOPRAZOLE 40 MG 10ML VIAL IV SCH (20:52)
[2018-09-28] MEDS: PRAVASTATIN 20 MG TAB PO SCH (20:53)
[2018-09-28 21:00] VITALS: BP 133/69
[2018-09-29] VITALS (8 sets, daily range): BP systolic 128–159; BP diastolic 60–74
[2018-09-29] MEDS ORDERED: BISACODYL 5 MG TAB EC PO ONE ×2 (00:15→00:45)
[2018-09-29] MEDS: PIPER-TAZ 3.375 GM 50 ML IV SCH ×5 (00:20→23:55)
[2018-09-29] MEDS: LEVOTHYROXINE SODIUM 100 MCG TAB PO SCH (05:52)
[2018-09-29] MEDS ORDERED: SODIUM CHLORIDE 0.9% 50ML 50 ML ONE (08:05)
--- NOTE | 2018-09-29 08:05 | Diagnostic Imaging Report ---
Examination: Single AP view of the chest. COMPARISON: Portable chest 09/28/2018 INDICATION: Pleural effusion status post thoracotomy IMPRESSION: 1. Lines and Tubes: None 2. Lungs are well-inflated. No interval change in opacification of the left lower lobe, likely reflecting a left pleural effusion and associated atelectasis or consolidation. Right lung is grossly clear. 3. Cardiomediastinal silhouette is obscured. Pulmonary vasculature is normal. 4. No acute bony abnormalities. Signed by: Dr. Bijan Cross M.D. on 09/29/2018 8:01 AM
[2018-09-29] MEDS: POLYETHYLENE GLYCOL 3350 17 GM PACK PO SCH ×2 (09:00→09:56)
[2018-09-29] MEDS: DOCUSATE SODIUM 100 MG CAP PO SCH ×3 (09:00→20:53)
--- NOTE | 2018-09-29 09:15 | NUR ---
Pt received resting in bed. All meds given as ordered. Dressings to left upper back clean, dry, and intact. Emotional support given. Pt had a bowel movement. Will monitor
[2018-09-29] MEDS: IRON SUCROSE 100 MG in SODIUM CHLORIDE 0.9% 100 ML 100 ML IV SCH (09:16)
[2018-09-29] MEDS: VENLAFAXINE HCL 37.5MG XR CAP PO SCH (09:17)
[2018-09-29] MEDS: METOPROLOL TARTRATE 50 MG TAB PO SCH (09:17)
[2018-09-29] MEDS: ASPIRIN 81 MG CHEW TAB PO SCH (09:17)
[2018-09-29] MEDS: AMLODIPINE BESYLATE 10 MG TAB PO SCH (09:17)
[2018-09-29] MEDS: ALLOPURINOL 300 MG TAB PO SCH (09:17)
[2018-09-29] MEDS: LAMOTRIGINE 100 MG TAB PO SCH (09:17)
[2018-09-29] MEDS: PANTOPRAZOLE 40 MG 10ML VIAL IV SCH ×2 (09:17→20:53)
[2018-09-29] MEDS: BUPROPION HCL 150 MG TABCR PO SCH (09:17)
--- NOTE | 2018-09-29 13:47 | Progress Note ---
DATE: 09/29/2018 Cardiology Progress Note SUBJECTIVE: The patient is without any chest pain, however, she does endorse some pain on her thoracotomy site on her back. Denies any palpitations. OBJECTIVE: VITAL SIGNS: Temperature 96.4, pulse 54, respiratory rate 17, blood pressure 143/72, and oxygen saturation 100% on 3 L nasal cannula. GENERAL: Alert and oriented x3, resting comfortably in the chair, does not appear to be in any acute distress. NECK: Supple. No JVD noted. CARDIOVASCULAR: Regular rate and rhythm. Normal S1, S2. No murmurs, no gallops. ABDOMEN: Soft, nontender. LUNGS: Clear to auscultation in the right lower lobe, however, left lower lobe and upper lobe with scattered crackles and coarse breath sounds. EXTREMITIES: Lower extremity, trace edema bilaterally. CARDIOVASCULAR MEDICATIONS: Metoprolol 50 mg p.o. daily, aspirin 81 mg p.o. daily, amlodipine 10 mg p.o. daily, and Lovenox 40 mg subcu daily. LABS: No new labs today. IMAGING: Chest x-ray from this morning with lungs well inflated. No interval change in opacification of the left lower lobe likely reflecting a left pleural effusion associated with atelectasis or consolidation. Her right lung is grossly clear. Telemetry, sinus rhythm. IMPRESSION: 1. Complicated pneumonia, status post thoracotomy and decortication. 2. Smoker. 3. Hypertension. 4. Hyperlipidemia. RECOMMENDATION: Continue to monitor postoperatively. Continue with the above-listed cardiac medications. Antimicrobial therapy per primary team. We will continue to follow this patient closely. The patient is stable from a cardiovascular standpoint. Dictated by Radha Shelley NP Escobar Garza MD JWV/SANDI /[id number]
--- NOTE | 2018-09-29 14:06 | NUR ---
Pulmonary Medicine DATE OF ENCOUNTER: 09/29/2018 SUBJECTIVE: 2 l/MIN OXYGEN 88% oxygen saturation, RA at rest. BM eating ok sitting up REVIEW OF SYSTEMS: no double vision, no headaches OBJECTIVE: VITAL SIGNS: Vital signs noted per the chart record. GENERAL: NAD, sitting up. HEENT: Normocephalic and atraumatic. NECK: Supple. Throat midline. LUNGS: Decreased breath sounds on the left side, right side mostly clear. CARDIOVASCULAR: S1, S2. No murmurs, rubs, or gallops. ABDOMEN: Soft and nontender. EXTREMITIES: No clubbing, no cyanosis, 1+ trace edema. INTEGUMENT: No rash or purpura. LABORATORY DATA: no new updates IMPRESSION AND PLAN: 1. Acute pneumonia, community-acquired. 2. Parapneumonic/complicated left-sided pleural effusion + lung abscess. post operative state, s/p surgical decortication + abscess drainage 3. Moderate hypoalbuminemia. 4. Mild anemia. 5. Recent prednisone use x 2 weeks (for rash on her body) 6. History of daily allergies. 7. Daily gastroesophageal reflux disease. 8. Former smoker, 50 pack years. 9. History of variable environmental exposures. 10. History of hypertension, hypothyroidism, anxiety/depression/chronic back pain, neuropathy. 11. gi bleed Continue high-dose antibiotics. Await cultures/pleural studies PT Follow-up, moboilze Follow up respiratory status closely. Needs BMs- miralax again lasix low dose home oxygen evaluation Thank you very much, Dr. Apple and Dr. Roldan for allowing me a chance to participate in the care of Ms. Jean. Please do not hesitate to contact me if I can help in anyway.
--- NOTE | 2018-09-29 15:11 | Progress Note ---
DATE: 09/29/2018 Medicine Progress Note SUBJECTIVE: The patient is doing much better today with no other complaints. PHYSICAL EXAMINATION: VITAL SIGNS: Temperature is 96.4, pulse 54, respiratory rate 17, blood pressure 143/72, pulse ox is 100% on 3 L nasal cannula. GENERAL: Not in acute distress. Alert and oriented x3. Cooperative on examination. HEENT: Head is normocephalic and atraumatic. Eyes; pupils are equal, round, and reactive to light bilaterally. Extraocular movements are intact bilaterally. Throat, no evidence of erythema or exudates in the posterior pharynx. Has poor dentition. NECK: Supple. Good range of motion. PULMONARY: Clear to auscultation bilaterally. No wheezing, no rales, no rhonchi, no crackles appreciated. CARDIOVASCULAR: Positive S1, S2. No murmurs, rubs, or gallops appreciated. ABDOMEN: Soft, nondistended, and nontender to palpation. Bowel sounds present. MUSCULOSKELETAL: Strength is 5/5 throughout. No evidence of any muscle deficits on examination. No weakness appreciated. NEUROLOGICAL: Cranial nerves 2 through 12 grossly intact. No evidence of any neurological deficits on exam. SKIN: Intact. Warm to touch. Good cap refill. PSYCHIATRIC: Normal affect and mood. EXTREMITIES: No edema. Good range of motion throughout. LABORATORY DATA: Lab findings show white count 10.6, hemoglobin 8, hematocrit is 25, platelets are 280. Chemistry reviewed and stable. IMPRESSION: 1. Community-acquired pneumonia with loculated left lung status post thoracotomy with two chest tubes placed on 09/25/2018, now removed on 09/27/2018 with negative cultures. 2. Hypotension. 3. Coffee-ground emesis with concerns of upper gastrointestinal bleeding, but EGD was deferred as an outpatient with much improved hemoglobin at 8. 4. Hypothyroidism. 5. Depression. 6. Morbid obesity. 7. Acute kidney injury secondary to prerenal azotemia and underlying hypotension, much improved. PLAN: At this time, this is postop day #5. Chest tubes are removed. She is breathing well. The only issue is that she is having desaturations on and off in which we will now arrange for home oxygen via home health. Continue with IV antibiotics. No growth has been positive yet. Chemistries and CBCs are stable. We will continue with same plan of care and monitor closely. MD NICOLE Marrero/SANDI /[id number]
[2018-09-29] MEDS: ENOXAPARIN SOD INJ 40 MG/0.4 ML SYR SC SCH (16:30)
--- NOTE | 2018-09-29 19:30 | NUR ---
Completed bedside report with morning nurse. Pt lying in bed HOB 45 degrees. Alert and orient to name. PICC right upper x2 in place. Denies pain at this time. Family at bedside. Call jackson within reach. Will continue to monitor.
[2018-09-29] MEDS: PRAVASTATIN 20 MG TAB PO SCH (20:53)
[2018-09-30] VITALS (7 sets, daily range): BP systolic 125–154; BP diastolic 62–74
[2018-09-30] MEDS: PIPER-TAZ 3.375 GM 50 ML IV SCH ×2 (06:00→11:30)
[2018-09-30] MEDS: LEVOTHYROXINE SODIUM 100 MCG TAB PO SCH (06:00)
--- NOTE | 2018-09-30 06:07 | Diagnostic Imaging Report ---
EXAMINATION: CHEST SINGLE (PORTABLE) COMPARISON: Chest x-ray 09/29/2018 INDICATION: Pneumonia ^PNA ^[id number] ^[id number] DISCUSSION: Frontal view of the chest obtained at 0549 hours. HEART AND MEDIASTINUM: Persistent opacification of the left heart border LINES: Right PICC line terminates in the SVC. LUNGS: Stable right basilar atelectasis. No interstitial edema in the right lung. Patchy airspace opacities to the left lung are stable. PLEURA: Partially loculated left pleural effusion is redemonstrated. No evidence of pneumothorax. BONES AND SOFT TISSUES: Stable degenerative changes. The soft tissues are normal. IMPRESSION: Stable chest. No new findings. Signed by: Dr. Mark Gordon MD on 09/30/2018 6:04 AM
[2018-09-30 06:33] LABS: BASOPHILS # (AUTO) 0.1 (0.0-0.1); BASOPHILS % 0.6 % (0.0-1.0); EOSINOPHILS # (AUTO) 0.5 (0.0-0.4); EOSINOPHILS % 5.8 % (0.0-6.0); HEMATOCRIT 23.5 % (34.2-44.1); HEMOGLOBIN 7.4 g/dL (12.0-16.0); LYMPHOCYTES # (AUTO) 0.7 (1.0-3.2); LYMPHOCYTES % 8.4 % (18.0-39.1); MEAN CORPUSCULAR HEMOGLOBIN 27.7 pg (28-32); MEAN CORPUSCULAR HGB CONC 31.5 g/dL (31-35); MONOCYTES # (AUTO) 0.4 (0.2-0.8); MONOCYTES % 4.6 % (4.4-11.3); NEUTROPHILS # (AUTO) 6.2 (2.1-6.9); PLATELET COUNT 354 x10e3/uL (140-360); RED BLOOD COUNT 2.67 x10e6/uL (3.6-5.1); RED CELL DISTRIBUTION WIDTH 14.8 % (11.7-14.4)
[2018-09-30 06:57] LABS: ANION GAP 12.9 mmol/L (8-16); BLOOD UREA NITROGEN 9 mg/dL (7-26); BUN/CREATININE RATIO 11 (6-25); CALCIUM 8.1 mg/dL (8.4-10.2); CARBON DIOXIDE 25 mmol/L (22-29); CHLORIDE 103 mmol/L (98-107); CREATININE, SERUM 0.85 mg/dL (0.57-1.11); EST GLOMERULAR FILTRATION RATE > 60 ML/MIN (60-); GLUCOSE 72 mg/dL (74-118); SODIUM 138 mmol/L (136-145)
--- NOTE | 2018-09-30 06:58 | NUR ---
Pt lying in bed HOB 75 degrees. Resp even and unlabored, 18. Call jackson within reach.
[2018-09-30 07:41] LABS: POTASSIUM 2.9 mmol/L (3.5-5.1)
--- NOTE | 2018-09-30 08:02 | NUR ---
PATIENT IS ALERT AND IN STABLE CONDITION WITH NO S/S OF RESPIRATORY DISTRESS. 02 APPLIED. NO PAIN VOICED. BED ALARM ON. CALL LIGHT IS WITHIN REACH, PATIENT INSTRUCTED TO CALL FOR ASSISTANCE NEEDED.
--- NOTE | 2018-09-30 08:10 | NUR ---
CALL PLACED OUT TO DR. ARIAS REGARDING CRITICAL POTASSIUM LEVEL OF 2.9- AWAITING CALLBACK.
[2018-09-30] MEDS: DOCUSATE SODIUM 100 MG CAP PO SCH ×3 (08:38→21:00)
[2018-09-30] MEDS: POLYETHYLENE GLYCOL 3350 17 GM PACK PO SCH ×2 (08:39→16:57)
[2018-09-30] MEDS: PANTOPRAZOLE 40 MG 10ML VIAL IV SCH ×2 (08:42→22:51)
[2018-09-30] MEDS: IRON SUCROSE 100 MG in SODIUM CHLORIDE 0.9% 100 ML 100 ML IV SCH (08:42)
[2018-09-30] MEDS: ASPIRIN 81 MG CHEW TAB PO SCH (08:42)
[2018-09-30] MEDS: AMLODIPINE BESYLATE 10 MG TAB PO SCH (08:43)
[2018-09-30] MEDS: LAMOTRIGINE 100 MG TAB PO SCH (08:43)
[2018-09-30] MEDS: BUPROPION HCL 150 MG TABCR PO SCH (08:43)
[2018-09-30] MEDS: METOPROLOL TARTRATE 50 MG TAB PO SCH (08:43)
[2018-09-30] MEDS: VENLAFAXINE HCL 37.5MG XR CAP PO SCH (08:43)
[2018-09-30] MEDS: ALLOPURINOL 300 MG TAB PO SCH (08:43)
[2018-09-30 08:59] LABS: EOSINOPHILS % (MANUAL) 6 % (0-7); LYMPHOCYTES % (MANUAL) 9 % (19-48); METAMYELOCYTES % (MANUAL) 1 % (0-0); MONOCYTES % (MANUAL) 1 % (3.4-9.0); MYELOCYTES % (MANUAL) 1 % (0-0); NEUTROPHILS % (MANUAL) 82 % (40-74); PLATELET ESTIMATE ADEQUATE; PLATELET MORPHOLOGY COMMENT NORMAL; RBC MORPHOLOGY COMMENT NORMAL
--- NOTE | 2018-09-30 11:30 | NUR ---
ORDER RECEIVED FOR HOME O2. MET W THE PT AT THE BEDSIDE. STATES SHE WOULD LIKE TO USE A DME COMPANY IN NETWORK W HER INSURANCE. CHOICE LETTER WAS SIGNED. COPY TO PT AND COPY TO CHART. REFERRAL FAXED TO [facility] @ OFF: [phone] / FAX: [phone]. NOTIFIED OLLIE / TURNER
--- NOTE | 2018-09-30 12:33 | NUR ---
RECEIVED ORDER FROM DR. ARIAS FOR 40 MEQ OF KDUR X1
--- NOTE | 2018-09-30 12:38 | NUR ---
Pulmonary Medicine DATE OF ENCOUNTER: 09/30/2018 SUBJECTIVE: RA fio2 92% saturation feels stronger eating well BM REVIEW OF SYSTEMS: no double vision, no headaches OBJECTIVE: VITAL SIGNS: Vital signs noted per the chart record. GENERAL: NAD, sitting up. HEENT: Normocephalic and atraumatic. NECK: Supple. Throat midline. LUNGS: Decreased breath sounds on the left side, right side mostly clear. CARDIOVASCULAR: S1, S2. No murmurs, rubs, or gallops. ABDOMEN: Soft and nontender. EXTREMITIES: No clubbing, no cyanosis, 1+ trace edema. INTEGUMENT: No rash or purpura. LABORATORY DATA: no new updates IMPRESSION AND PLAN: 1. Acute pneumonia, community-acquired. 2. Parapneumonic/complicated left-sided pleural effusion + lung abscess. post operative state, s/p surgical decortication + abscess drainage 3. Moderate hypoalbuminemia. 4. Mild anemia. 5. Recent prednisone use x 2 weeks (for rash on her body) 6. History of daily allergies. 7. Daily gastroesophageal reflux disease. 8. Former smoker, 50 pack years. 9. History of variable environmental exposures. 10. History of hypertension, hypothyroidism, anxiety/depression/chronic back pain, neuropathy. 11. gi bleed Continue antibiotics. Await cultures/pleural studies PT Follow-up, moboilze Follow up respiratory status closely. Prevent constipation lasix low dose home oxygen evaluation today k replete Thank you very much, Dr. Apple and Dr. Roldan for allowing me a chance to participate in the care of Ms. Jean. Please do not hesitate to contact me if I can help in anyway.
[2018-09-30] MEDS ORDERED: POTASSIUM CHLORIDE 20 MEQ TAB CR PO SCH ×2 (12:45→16:30)
[2018-09-30] MEDS ORDERED: SODIUM CHLORIDE 0.9% 250ML 250 ML IV ONE (13:15)
[2018-09-30] MEDS ORDERED: POTASSIUM CHLORIDE 20 MEQ TAB CR PO ONE (13:15)
--- NOTE | 2018-09-30 15:11 | Progress Note ---
DATE: 09/30/2018 Medicine Progress Note SUBJECTIVE: The patient is doing well today with no complaints. She was sitting in a recliner with no issues. OBJECTIVE: VITAL SIGNS: Temperature 98.3, pulse 65, respiratory rate is 20, blood pressure 125/73, pulse ox 92% on 2 L nasal cannula. LAB FINDINGS: Show a white count of 8, hemoglobin 7.4, hematocrit 24, platelets of 354. Chemistry; sodium 138, potassium 3.9, chloride 103, bicarb 25, anion gap , creatinine is 0.85, glucose is 72, calcium 8.1. So far, the pleural cultures were found to be no growth to date. Chest x-ray shows stable chest, no new findings. PHYSICAL EXAMINATION: GENERAL: Not in acute distress. Alert and oriented x3. Cooperative on examination. HEENT: Head is normocephalic and atraumatic. Eyes, pupils are equal, round, and reactive to light bilaterally. Extraocular movements are intact bilaterally. NECK: Supple. Good range of motion throughout. No evidence of erythema or exudates in the posterior pharynx. Has poor dentition. PULMONARY: Clear to auscultation bilaterally. No wheezing, no rales, no rhonchi, no crackles appreciated. CARDIOVASCULAR: Positive S1, S2. No murmurs, rubs, or gallops appreciated. ABDOMEN: Soft, nondistended, and nontender to palpation. Bowel sounds present. MUSCULOSKELETAL: Strength is 5/5 throughout. No evidence of any muscle deficits on examination. No weakness appreciated. NEUROLOGICAL: Cranial nerves II through XII grossly intact. No evidence of any neurological deficits on exam. SKIN: Intact. Warm to touch. Good cap refill. PSYCHIATRIC: Normal affect and mood. EXTREMITIES: No edema. Good range of motion throughout. IMPRESSION: 1. Recurrent pneumonia with loculated left lung, status post thoracotomy with 2 chest tubes placed on 09/25/2018, removed on 09/27/2018, with negative cultures. 2. Hypotension, resolved. 3. Coffee-ground emesis with upper gastrointestinal bleed concerning status post EGD, was deferred as an outpatient due to current respiratory status and hemoglobin is stable, but hemoglobin today is 7.4, which will require blood transfusion. 4. Hypothyroidism. 5. Depression. 6. Morbid obesity. 7. Acute kidney injury secondary to prerenal azotemia from underlying hypotension, much improved. PLAN: This is postop day #6. Chest tubes are removed. She is breathing much better, sitting in a recliner. Awaiting for home O2 arrangement. Continue with IV antibiotics. Discussed with ID about oral antibiotic therapy. The patient has been cleared for discharge by Pulmonary. At this time, we will order type and screen and transfuse 1 unit of packed RBC given labs in the morning. Replace potassium. MD NICOLE Marrero/WALESKAL /[id number]
[2018-09-30] MEDS: ENOXAPARIN SOD INJ 40 MG/0.4 ML SYR SC SCH (17:10)
[2018-09-30] MEDS ORDERED: SODIUM CHLORIDE 0.9% 250ML 250 ML ONE (17:53)
--- NOTE | 2018-09-30 19:14 | NUR ---
PATIENT IS SITTING IN THE CHAIR- IN STABLE CONDITION WITH NO S/S OF RESPIRATORY DISTRESS. NO PAIN VOICED. PATIENT IS CURRENTLY RECEIVING BLOOD TRANSFUSION. PRESENT IN ROOM. CALL LIGHT IS WITHIN REACH, PATIENT INSTRUCTED TO CALL FOR ASSISTANCE NEEDED. BEDSIDE REPORT GIVEN TO ONCOMING NURSE.
[2018-09-30] MEDS: HYDROCODONE/APAP 5MG-325MG TAB PO PRN (22:49)
[2018-09-30] MEDS: PRAVASTATIN 20 MG TAB PO SCH (22:50)
[2018-09-30] MEDS: VANCOMYCIN 1GM/NS 250 ML 250 ML IV SCH (22:51)
[2018-10-01] VITALS: BP 155/73
[2018-10-01 04:00] VITALS: BP 184/84
[2018-10-01 06:04] LABS: HEMATOCRIT 26.4 % (34.2-44.1); HEMOGLOBIN 8.7 g/dL (12.0-16.0); MEAN CORPUSCULAR HEMOGLOBIN 28.1 pg (28-32); MEAN CORPUSCULAR VOLUME 85.2 fL (81-99); PLATELET COUNT 349 x10e3/uL (140-360); RED CELL DISTRIBUTION WIDTH 15.4 % (11.7-14.4)
[2018-10-01 06:46] LABS: ANION GAP 13.8 mmol/L (8-16); BLOOD UREA NITROGEN 6 mg/dL (7-26); BUN/CREATININE RATIO 8 (6-25); CALCIUM 8.3 mg/dL (8.4-10.2); CARBON DIOXIDE 25 mmol/L (22-29); CHLORIDE 103 mmol/L (98-107); CREATININE, SERUM 0.79 mg/dL (0.57-1.11); EST GLOMERULAR FILTRATION RATE > 60 ML/MIN (60-); GLUCOSE 80 mg/dL (74-118); POTASSIUM 3.8 mmol/L (3.5-5.1); SODIUM 138 mmol/L (136-145)
[2018-10-01] MEDS: LEVOTHYROXINE SODIUM 100 MCG TAB PO SCH (06:53)
--- NOTE | 2018-10-01 07:31 | NUR ---
PATIENT IS ALERT, AWAKE, AND IN STABLE CONDITION WITH NO S/S OF RESPIRATORY DISTRESS. 02 APPLIED. PATIENT C/O 5/10 BACK PAIN. CALL LIGHT IS WITHIN REACH, PATIENT INSTRUCTED TO CALL FOR ASSISTANCE NEEDED.
[2018-10-01 07:51] VITALS: BP 149/69
[2018-10-01 07:55] VITALS: BP 149/69
[2018-10-01] MEDS: BUPROPION HCL 150 MG TABCR PO SCH (08:21)
[2018-10-01] MEDS: ALLOPURINOL 300 MG TAB PO SCH (08:21)
[2018-10-01] MEDS: POLYETHYLENE GLYCOL 3350 17 GM PACK PO SCH ×2 (08:21→15:59)
[2018-10-01] MEDS: AMLODIPINE BESYLATE 10 MG TAB PO SCH (08:21)
[2018-10-01] MEDS: HYDROCODONE/APAP 5MG-325MG TAB PO PRN ×2 (08:21→13:53)
[2018-10-01] MEDS: METOPROLOL TARTRATE 50 MG TAB PO SCH (08:22)
[2018-10-01] MEDS: PANTOPRAZOLE 40 MG 10ML VIAL IV SCH (08:22)
[2018-10-01] MEDS: ASPIRIN 81 MG CHEW TAB PO SCH (08:22)
[2018-10-01] MEDS: VENLAFAXINE HCL 37.5MG XR CAP PO SCH (08:22)
[2018-10-01] MEDS: IRON SUCROSE 100 MG in SODIUM CHLORIDE 0.9% 100 ML 100 ML IV SCH (08:22)
[2018-10-01] MEDS: LAMOTRIGINE 100 MG TAB PO SCH (08:22)
[2018-10-01] MEDS: DOCUSATE SODIUM 100 MG CAP PO SCH ×2 (08:22→14:01)
--- NOTE | 2018-10-01 10:07 | Progress Note ---
DATE: 10/01/2018 Medicine Progress Note SUBJECTIVE: The patient is doing well today with no complaints. Has home O2 already arranged. Awaiting for ID final recommendations in terms of oral antibiotics. PHYSICAL EXAMINATION: VITAL SIGNS: Temperature is 97.7, pulse 94, respiratory rate is 19, blood pressure 155/73, pulse ox 92% on 2 L nasal cannula. GENERAL: Not in acute distress. Alert and oriented x3. Cooperative on examination. HEENT: Head is normocephalic and atraumatic. Eyes, pupils are equal, round, and reactive to light bilaterally. Extraocular movements are intact bilaterally. NECK: Supple. Good range of motion throughout. No evidence of erythema or exudates in the posterior pharynx. Has poor dentition. PULMONARY: Clear to auscultation bilaterally. No wheezing, no rales, no rhonchi, no crackles appreciated. CARDIOVASCULAR: Positive S1, S2. No murmurs, rubs, or gallops appreciated. ABDOMEN: Soft, nondistended, and nontender to palpation. Bowel sounds present. MUSCULOSKELETAL: Strength is 5/5 throughout. No evidence of any muscle deficits on examination. No weakness appreciated. NEUROLOGICAL: Cranial nerves II through XII grossly intact. No evidence of any neurological deficits on exam. SKIN: Intact. Warm to touch. Good cap refill. PSYCHIATRIC: Normal affect and mood. EXTREMITIES: No edema. Good range of motion throughout. LAB FINDINGS: Show white count is 9.5, hemoglobin 8.7, hematocrit is 26, platelets of 349. Chemistries reviewed and stable. MICROBIOLOGY: All cultures final with no growth. IMPRESSION: 1. Recurrent pneumonia with loculated left lung, status post thoracotomy with 2 chest tubes placed on 09/25/2018, removed on 09/27/2018, with negative cultures. 2. Hypotension, resolved. 3. Anemia, improved. Hemoglobin 8.7 after status post 1 unit of packed RBC given yesterday. 4. Hypothyroidism. 5. Depression. 6. Morbid obesity. 7. Acute kidney injury secondary to prerenal azotemia from underlying hypotension. PLAN: Postop day #7 today. Chest tubes removed. She got 1 unit of packed RBC yesterday with much improved hemoglobin. She really has home O2 arranged. Now, we are just going to wait for ID's final oral antibiotic therapy. Pain prescription written and placed in the chart. She can be discharged home later today. MD NICOLE Marrero/SANDI /[id number]
[2018-10-01 11:14] VITALS: BP 126/59
[2018-10-01 11:19] LABS: FOLATE 18.2 ng/mL (7.0-15.4)
[2018-10-01] MEDS ORDERED: LEVOFLOXACIN 500 MG TAB PO SCH (11:30)
--- NOTE | 2018-10-01 11:38 | NUR ---
Pulmonary Medicine DATE OF ENCOUNTER: 10/01/2018 SUBJECTIVE: 2 L/min oxygen NC delivery device eating BM REVIEW OF SYSTEMS: no double vision, no headaches OBJECTIVE: VITAL SIGNS: Vital signs noted per the chart record. GENERAL: NAD, sitting up. HEENT: Normocephalic and atraumatic. NECK: Supple. Throat midline. LUNGS: Decreased breath sounds on the left side, right side mostly clear. CARDIOVASCULAR: S1, S2. No murmurs, rubs, or gallops. ABDOMEN: Soft and nontender. EXTREMITIES: No clubbing, no cyanosis, 1+ trace edema. INTEGUMENT: No rash or purpura. LABORATORY DATA: no new updates IMPRESSION AND PLAN: 1. Acute pneumonia, community-acquired. 2. Parapneumonic/complicated left-sided pleural effusion + lung abscess. post operative state, s/p surgical decortication + abscess drainage 3. Moderate hypoalbuminemia. 4. Mild anemia. 5. Recent prednisone use x 2 weeks (for rash on her body) 6. History of daily allergies. 7. Daily gastroesophageal reflux disease. 8. Former smoker, 50 pack years. 9. History of variable environmental exposures. 10. History of hypertension, hypothyroidism, anxiety/depression/chronic back pain, neuropathy. 11. gi bleed Continue antibiotics. Change to PO abx Await cultures/pleural studies PT Follow-up, mobilize Follow up respiratory status closely. Prevent constipation lasix low dose home oxygen at discharge, delivered initial tank Thank you very much, Dr. Apple and Dr. Roldan for allowing me a chance to participate in the care of Ms. Jean. Please do not hesitate to contact me if I can help in anyway.
[2018-10-01] MEDS ORDERED: PROAIR HFA INH8.5 GM IH (11:44)
--- NOTE | 2018-10-01 14:55 | NUR ---
DISCUSSED IN BARRIER ROUNDS, PT O2 WAS DELIVERED YESTERDAY SHOULD DC TODAY.
[2018-10-01 16:04] VITALS: BP 126/60
[2018-10-01] MEDS: ENOXAPARIN SOD INJ 40 MG/0.4 ML SYR SC SCH (16:04)
--- NOTE | 2018-10-01 17:02 | NUR ---
ORDER TO REMOVE PICC LINE RECEIVED FROM DR. ARIAS
--- NOTE | 2018-10-01 17:50 | NUR ---
PATIENT DISCHARGE HOME- PATIENT OFF THE UNIT AT 1740 PER WHEELCHAIR ACCOMPANIED BY RN AND PCT TO THE FRONT LOBBY. PATIENT REMAIN IN STABLE CONDITION WITH NO S/S OF RESPIRATORY DISTRESS. 02 APPLIED AT 2L NC. PICC LINE REMOVED WITH TIP INTACT. NO PAIN VOICED. DISCHARGE INSTRUCTIONS, TEACHING, AND MEDICATIONS GIVEN TO THE PATIENT. ALL PERSONAL ITEMS WERE TAKEN WITH THE PATIENT AND HER .
--- NOTE | 2018-10-02 17:33 | Discharge Summary ---
FINAL DISCHARGE DIAGNOSES: 1. Recurrent pneumonia with loculated left lung status post thoracotomy with chest tubes placed on 09/25/2018, removed on 09/27/2018 with negative cultures, discharged on oral antibiotics as per Infectious Disease recommendations. 2. Hypotension, resolved. 3. Anemia status post blood transfusion. 4. Hypothyroidism. 5. Depression. 6. Morbid obesity. 7. Acute kidney injury secondary to prerenal azotemia, resolved. CONSULTANTS: CT Surgery, Pulmonary, Infectious Disease. VITAL SIGNS: Temperature is 96.9, pulse 74, respiratory rate is 16, blood pressure 126/60, pulse ox is 98% on nasal cannula 2-3 L. LABORATORY DATA: Lab findings show white count is 9.5, hemoglobin 8.7, hematocrit is 26, platelets of 329. Coagulation; PT 15, INR 1.1, PTT 37. Chemistry; sodium 138, potassium 3.8, chloride 103, bicarb 25, anion gap of 13, BUN of 6, creatinine is 0.79, calcium is 8.3. Folate 18, vitamin B12 of 1603. Iron saturation is 11%. Troponins were all negative. Urinalysis, negative for fluid reviewed. MICROBIOLOGY: Sputum culture negative. Blood cultures were negative. Urine cultures negative. Gram stain body fluid negative. All the other cultures of the body fluid, pleural fluid from the thoracotomy were all no growth. IMAGING STUDIES: CT chest on admission shows a large left pleural effusion with component of loculation. There is evidence of pulmonary edema. Chest x-ray on discharge is stable. She had a thoracentesis on 09/21/2018 that minimal amount of fluid was taken out, 150 mL of loculated nature. HOSPITAL COURSE: This is a 73-year-old female, morbidly obese with multiple comorbidities, who comes into the ED with complaints of cough, congestion, and shortness of breath. Apparently, the patient has been treated for underlying pneumonia by her PCP for several weeks now on oral antibiotics. The patient now reports with similar complaints and symptoms and was further evaluated. Chest x-ray was concerning for underlying white out of the left hemithorax requiring a CT chest, which also concluded that there was a large left pleural effusion with components of loculation on the left lung. The patient underwent thoracentesis with 150 mL of loculated fluid and recommended CT Surgery. Pulmonary was consulted as well and antibiotics were initiated. ID was consulted and managed antibiotics accordingly. Pulmonary recommended CT Surgery for decortication and also removal of pleural fluid. The patient had two chest tubes placed by CT Surgery and significant amount of effusion was removed. The patient did well postoperatively and was sent to the ICU for postop care. The patient's chest tubes were eventually removed and the patient was breathing well with no issues. Serial chest x-rays were performed by Pulmonary, which showed resolution of the left-sided pleural effusion. All cultures including pleural fluid cultures were all found to be negative. Blood cultures were negative, urine cultures were negative as well. The patient did maintain on IV antibiotics while here in the hospital stay. The patient was discharged on oral Levaquin for 5 days total, the patient was given a script. The patient was cleared for discharge by CT Surgery, Pulmonary and Infectious Disease. On the day of discharge, vital signs stable, labs reviewed and stable. The patient was seen, evaluated, examined thoroughly on the day of discharge, no other complaints. The patient verbalized understanding and agrees to plan of care, to follow up as an outpatient with primary care physician in [address] Surgery and Pulmonary in 2 weeks' time, must see Infectious Disease in 2 weeks' time as well. MEDICATIONS: See med reconciliation form. DISPOSITION: Home. CONDITION: Stable. DIET: Heart healthy. In the event of any worsening symptoms, the patient was advised to come back to the ED for further evaluation. Discharge summary took greater than 35 minutes. MD NICOLE Marrero/SANDI /[id number]
== END 2018-10-01 17:40 | disposition home or self-care (01) | DRG 853 ==
LOC: ER 13:28 → ERHOLD 18:41 → MED/SURG2 20:57 → ICU 09-24 16:49 → MED/SURG3 09-28 14:25
PROVIDERS: ADMIT Internal Medicine; ATTEND Internal Medicine
PROC: 0W9B00Z Drainage of Left Pleural Cavity with Drainage Device, Open Approach (ICD-10-PCS; 2018-09-21)
PROC: 02HV33Z Insertion of Infusion Device into Superior Vena Cava, Percutaneous Approach (ICD-10-PCS; 2018-09-23)
PROC: 30243N1 Transfusion of Nonautologous Red Blood Cells into Central Vein, Percutaneous Approach (ICD-10-PCS; 2018-09-23)
PROC: 0BNL0ZZ Release Left Lung, Open Approach (ICD-10-PCS; 2018-09-24)
PROC: 0B9L00Z Drainage of Left Lung with Drainage Device, Open Approach (ICD-10-PCS; 2018-09-24)
PROC: 0WCB4ZZ Extirpation of Matter from Left Pleural Cavity, Percutaneous Endoscopic Approach (ICD-10-PCS; principal; 2018-09-24 13:51)
DX: A41.9 Sepsis, unspecified organism (principal); J18.9 Pneumonia, unspecified organism; J91.8 Pleural effusion in other conditions classified elsewhere; K92.2 Gastrointestinal hemorrhage, unspecified; N17.9 Acute kidney failure, unspecified; Z68.43 Body mass index [BMI] 50.0-59.9, adult; I10 Essential (primary) hypertension; E03.9 Hypothyroidism, unspecified; E88.09 Other disorders of plasma-protein metabolism, not elsewhere classified; Z87.891 Personal history of nicotine dependence; F32.9 Major depressive disorder, single episode, unspecified; E66.01 Morbid (severe) obesity due to excess calories; G89.29 Other chronic pain; D64.9 Anemia, unspecified; K21.9 Gastro-esophageal reflux disease without esophagitis; F41.9 Anxiety disorder, unspecified; M54.5 Low back pain; E78.5 Hyperlipidemia, unspecified
CPT/HCPCS: 32555; 36415; 36569; 71045; 71250; 74176; 74470; 77012; 80048; 80053; 80202; 81001; 82550; 82553; 82607; 82728; 82746; 82945; 83540; 83605; 83615; 83735; 84100; 84157; 84466; 84484; 85007; 85025; 85027; 85045; 85610; 85730; 86850; 86900; 86920; 87040; 87070; 87071; 87075; 87086; 87102; 87116; 87205; 87206; 88112; 88305; 89051; 93005; 93306; 96361; 97139; 99284; J0456; J1644; J1650; J1756; J2001; J2250; J2270; J2405; J2543; J3010; J3370; J7030; J7050; P9016

== ENCOUNTER → 2018-12-25 | Outpatient (CLI) | payer MEDICARE ==
[~2018-12-25] MED LIST changes: +GABAPENTIN100 MG PO; +POTASSIUM CHLO10 MEQ PO; +PROAIR HFA INH8.5 GM IH
--- NOTE | 2018-12-25 13:39 | Diagnostic Imaging Report ---
CT of the chest, without contrast. History: Loculated pleural effusion. Comparison: 09/20/2018. Technique: Multidetector CT scanning of the chest was performed from the level of the apices to the upper abdomen without contrast. Coronal and sagittal multiplanar reformations were obtained. RADIATION DOSE: Total DLP: 508.22 mGy*cm Dose modulation, iterative reconstruction, and/or weight based adjustment of the mA/kV was utilized to reduce the radiation dose to as low as reasonably achievable. Findings: The visualized structures within the base of the neck demonstrate no significant abnormalities. The thoracic aorta is normal course and caliber. There is stable mild prominence of the pulmonary arteries. The heart is not enlarged. Atherosclerotic calcifications are noted within the coronary arteries. No abnormal pericardial fluid is present. Multiple nonspecific normal to mildly prominent sized mediastinal lymph nodes noted. There is no abnormal axillary or hilar lymph node enlargement. The trachea and proximal airways are patent. There are postsurgical changes from interval left-sided thoracotomy and presumed decortication. There has been resolution of left-sided loculated pleural effusion with no significant residual effusion remaining. There are linear opacities present within the lingula and left lower lobe which likely reflect scarring/atelectasis. A 5 mm pulmonary nodule is identified within the right apex (axial image 22). There is no evidence for consolidation or pneumothorax. 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 Small hiatal hernia noted. Atherosclerotic calcifications noted within the visualized abdominal aorta. The remaining visualized upper abdominal contents are unremarkable. The osseous structures demonstrate stable degenerative changes without evidence for acute fracture or destructive process. IMPRESSION: 1. Post surgical changes of the left chest with areas of scarring/atelectasis noted within the lingula/left lower lobe. Resolution of loculated pleural effusion with no significant effusion remaining. 2. 5 mm pulmonary nodule identified within the right apex. In a low-risk patient, no follow-up is warranted. In a high-risk patient, consider [address] follow up examination. Signed by: Dr. Emmanuel Souza MD on 12/25/2018 1:35 PM
== END ==
LOC: CT 11:25
PROVIDERS: ATTEND Internal Medicine
DX: J90 Pleural effusion, not elsewhere classified (principal)
CPT/HCPCS: 71250

== ENCOUNTER → 2019-01-07 | Outpatient (CLI) | payer MEDICARE ==
[~2019-01-07] MED LIST changes: +ALBUTEROL SULF 0.083% NEB SOLN 3 ML NEB ONE
== END ==
LOC: RESP 12:30
PROVIDERS: ATTEND Internal Medicine
DX: Z87.891 Personal history of nicotine dependence (principal)
CPT/HCPCS: 94060; 94640; 94727; 94729

== ENCOUNTER → 2021-01-20 | Day surgery (SDC) | payer OTHER, MEDICARE ==
[2021-01-18 13:25] LABS: BASOPHILS # (AUTO) 0.1 (0.0-0.1); BASOPHILS % 0.6 % (0.0-1.0); EOSINOPHILS # (AUTO) 0.4 (0.0-0.4); EOSINOPHILS % 4.9 % (0.0-6.0); HEMATOCRIT 30.2 % (34.2-44.1); HEMOGLOBIN 9.5 g/dL (12.0-16.0); LYMPHOCYTES # (AUTO) 1.3 (1.0-3.2); LYMPHOCYTES % 17.4 % (18.0-39.1); MEAN CORPUSCULAR HEMOGLOBIN 28.3 pg (28-32); MEAN CORPUSCULAR HGB CONC 31.5 g/dL (31-35); MEAN CORPUSCULAR VOLUME 89.9 fL (81-99); MONOCYTES # (AUTO) 0.5 (0.2-0.8); MONOCYTES % 5.8 % (4.4-11.3); NEUTROPHILS # (AUTO) 5.5 (2.1-6.9); NEUTROPHILS % 70.9 % (38.7-80.0); PLATELET COUNT 161 x10e3/uL (140-360); RED BLOOD COUNT 3.36 x10e6/uL (3.6-5.1); RED CELL DISTRIBUTION WIDTH 14.1 % (11.7-14.4)
[2021-01-18 13:40] LABS: INR 0.95; PROTHROMBIN TIME 13.1 seconds (11.9-14.5)
[2021-01-18 13:41] LABS: PARTIAL THROMBOPLASTIN TIME 31.5 seconds (23.8-35.5)
[2021-01-18 13:45] LABS: CALCIUM 9.6 mg/dL (8.4-10.2); CREATININE, SERUM 2.09 mg/dL (0.57-1.11)
[~2021-01-20] MED LIST changes: +ACETAMINOPHEN650 M2 PO; -ALBUTEROL SULF 0.083% NEB SOLN 3 ML NEB ONE; +CRESTOR10 MG PO; +FENTANYL CITRATE/PF 100MCG/2 ML INJ ONE; +HYDROXYZINE HCL25 MG PO; +LAMOTRIGINE100 MG PO; +LIQUID IRON PO; +MEMORY SUPPLEMENT PO; +MIDAZOLAM HCL 2 MG/2 ML VIAL ONE
[2021-01-20 10:28] VITALS: BP 108/58
== END | disposition home or self-care (01) ==
LOC: OR 07:38
PROVIDERS: ATTEND Internal Medicine Gastroenterology
DX: K29.70 Gastritis, unspecified, without bleeding (principal); K57.30 Diverticulosis of large intestine without perforation or abscess without bleeding; K64.8 Other hemorrhoids; Z98.84 Bariatric surgery status; I10 Essential (primary) hypertension; R00.1 Bradycardia, unspecified; F32.A Depression, unspecified; F41.9 Anxiety disorder, unspecified; Z91.040 Latex allergy status; Z01.810 Encounter for preprocedural cardiovascular examination; Z01.812 Encounter for preprocedural laboratory examination; Z20.822 Contact with and (suspected) exposure to COVID-19; Z79.82 Long term (current) use of aspirin
CPT/HCPCS: 36415; 43239; 45378; 80048; 85025; 85610; 85730; 93005; J2250; J3010; U0002